=== PATIENT | male | born 1955 | race Caucasian/White ===

== ENCOUNTER 2020-12-22 08:43 | Inpatient (IN) | payer SELFPAY ==
[2020-12-22] VITALS (19 sets, daily range): BP systolic 103–138; BP diastolic 62–103; PULSE 83–154; RESP 16–20; TEMP 36.3–36.8; O2SAT 93–97; BMI 39.9
--- NOTE | 2020-12-22 | ECHO_ITS ---
Patient Info Name: Desmond Piper Age: 65 years : 1955 Gender: Male Ht: 69 in Wt: 270 lbs BSA: 2.50 m2 HR: 107 bpm BP: 113 / 66 mmHg Heart Rhythm: Atrial Fibrillation Technical Quality: Good Exam Date: 12/22/2020 3:43 PM Exam Location: [facility] Pulmonary Exam Room: [facility] [place] Patient Status: Inpatient Admit Date: 12/22/2020 Staff Ordering Physician: Karlos Vines MD Manager Public: Bessy Shaw RDCS Attending Provider: Juanita Culp MD Referring Physician: Jasmyn RASMUSSEN; Exam Type: CA echo doppler color flow Study Info Indications - AFIB Complete two-dimensional, color flow and Doppler transthoracic echocardiogram is performed. Summary 1. Complete two-dimensional, color flow and Doppler transthoracic echocardiogram is performed. 2. Left ventricular chamber dimension is mildly enlarged. 3. Left ventricular systolic function is severely reduced, estimated at 20-25%. 4. There is mildly increased left ventricular wall thickness. 5. The left ventricular diastolic function is indeterminate. 6. Right ventricular chamber dimension is mildly enlarged. 7. Right ventricular systolic function is reduced. 8. Left atrial chamber dimension is moderately enlarged. 9. Right atrial chamber dimension is mildly enlarged. 10. There is mild to moderate mitral valve regurgitation. 11. There is mild tricuspid valve regurgitation. 12. Moderate pulmonary hypertension, estimated pulmonary arterial systolic pressure is 51 mmHg. 13. There is mild pulmonic regurgitation. 14. There is small pericardial effusion. Left Ventricle Left ventricular chamber dimension is mildly enlarged. Left ventricular systolic function is severely reduced, estimated at 20-25%. There is mildly increased left ventricular wall thickness. The left ventricular diastolic function is indeterminate. Right Ventricle Right ventricular chamber dimension is mildly enlarged. Right ventricular systolic function is reduced. Left Atria Left atrial chamber dimension is moderately enlarged. Right Atria Right atrial chamber dimension is mildly enlarged. Atrial Septum Intact interatrial septum visualized by color flow imaging. Aortic Valve The aortic valve is trileaflet. There is mild aortic valve sclerosis. There is no aortic valve stenosis. There is trace aortic valve regurgitation. Pulmonic Valve The pulmonic valve is normal. There is no pulmonic valve stenosis. There is mild pulmonic regurgitation. Mitral Valve The mitral valve has thickened leaflets. There is no mitral valve stenosis. There is mild to moderate mitral valve regurgitation. Tricuspid Valve The tricuspid valve leaflets are normal. There is no significant tricuspid valve stenosis. There is mild tricuspid valve regurgitation. Moderate pulmonary hypertension, estimated pulmonary arterial systolic pressure is 51 mmHg. Pericardium/Pleural The pericardium appears normal. There is small pericardial effusion. Inferior Vena Cava Dilated inferior vena cava with <50% collapse upon inspiration consistent with elevated right atrial pressure, 10 mmHg. Aorta The aortic root size at the sinus of Valsalva is normal. Left Ventricular Outflow Tract Name Value Normal LVOT 2D
--- NOTE | ~2020-12-22 | XR_ITS ---
EXAMINATION: XR chest 1V portable DATE: 12/22/2020 09:45 INDICATION: Shortness of breath. TECHNIQUE: A single frontal view of the chest was obtained. COMPARISON: Chest 2 views 03/04/2011 FINDINGS: There is an interstitial pattern in the lungs, consistent with mild pulmonary edema. No ple ural effusion or pneumothorax. Cardiomegaly is noted. There are changes of anterior fusion procedure in cervical spine. IMPRESSION: 1. Mild pulmonary edema. 2. Cardiomegaly. Reviewed, dictated and finalized at location A. [facility]
--- NOTE | 2020-12-22 08:49 | ECG_ITS ---
Measurements Intervals [place] Rate: 154 P: WI: 0 QRS: 142 QRSD: 87 T: 120 QT: 314 QTc: 504 Interpretive Statements ATRIAL FIBRILLATION WITH RAPID VENTRICULAR RESPONSE RIGHT AXIS DEVIATION LOW VOLTAGE- LIMB LEADS BORDERLINE R WAVE PROGRESSION, ANTERIOR LEADS BORDERLINE T WAVE ABNORMALITY- DIFFUSE LEADS ABNORMAL ECG Electronically Signed On 12-22-2020 10:32:37 [employer]PERATOR by Branden Curry D.O.
[2020-12-22 09:18] LABS: Basophils Absolute Auto 0.1 K/mm3 (0.0-0.1); Basophils Percent Auto 0.7 % (0.2-1.2); Eosinophils Absolute Auto 0.1 K/mm3 (0-0.3); Eosinophils Percent Auto 1.6 % (0-4.4); Hematocrit 48.6 % (42.0-52.0); Hemoglobin 15.8 g/dL (14.0-18.0); Immature Granulocyte Absolute 0.02 K/mm3 (0.00-0.031); Immature Granulocyte Percent A 0.2 % (0-0.5); Lymphocytes Percent Auto 31.4 % (18.3-44.2); Mean Corpuscular HGB Conc 32.5 g/dl (32-36); Mean Corpuscular Hemoglobin 28.7 pg (26-34); Mean Corpuscular Volume 88.4 fl (80-100); Mean Platelet Volume 10.8 fl (7.4-10.4); Monocytes Absolute Auto 0.7 K/mm3 (0.1-0.6); Monocytes Percent Auto 8.2 % (2.6-8.5); Neutrophils Absolute Auto 4.8 K/mm3 (1.3-6.7); Neutrophils Percent Auto 57.9 % (45.5-73.1); Platelet Count Result 290 k/mm3 (150-375); White Blood Count 8.3 K/mm3 (4.5-10.0)
[2020-12-22 09:25] LABS: INR 1.2; Prothrombin Time 15.5 Seconds (11.1-14.7)
[2020-12-22 09:26] LABS: Partial Thromboplastin Time 28.9 SECONDS (22.3-36.8)
--- NOTE | 2020-12-22 09:26 | ED.SOB ---
HPI - SOB/Dyspnea General Chief Complaint: Shortness of Breath/Dyspnea Stated Complaint: shortness of breath, chest pressure Time Seen by Provider: 12/22/20 08:49 Source: patient Mode of arrival: wheelchair Limitations: no limitations History of Present Illness HPI Narrative: This is a 65 year old male with history of paroxysmal atrial fibrillation who presents for evaluation shortness of breath and chest pressure. He has been having shortness of breath for the past 16 days. He has noticed his breathing worsens when he lays down so he has been sleeping in a recliner. He has wheezing when he sleeps at night so he uses his inhaler. He also reports constant chest pressure for 2 weeks. He states he feels like his lungs are full. He was noted to have a 20 pound weight gain by his PCP . He has been taking Lasix at home , and he has noted that it improved his breath. He ran out of Lasix on Saturday. He went to see his primary care physician today and he was referred to ER for treatment. He was found to be in afib with RVR. He states he was diagnosed with afib 7 years ago. He states he was placed on aspirin and metoprolol for his afib. He states he no longer takes either medication because he had not had any issues. He states his podiatrist assistant moved away years ago so he does not follow one currently. Related Data Home Medications Medication Instructions Recorded Confirmed ascorbic acid (vitamin C) 500 mg PO DAILY 12/22/20 12/22/20 cholecalciferol (vitamin D3) 125 mcg PO DAILY 12/22/20 12/22/20 [Dialyvite Vitamin D] cod liver oil 1 cap PO ONCE 12/22/20 12/22/20 magnesium 400 mg PO DAILY 12/22/20 12/22/20 potassium 99 mg PO DAILY 12/22/20 12/22/20 saw palmetto 1,000 mg PO DAILY 12/22/20 12/22/20 Allergies Allergy/AdvReac Type Severity Reaction Status Date / Time amoxicillin Allergy Unknown Unknown Verified 12/22/20 08:59 Penicillins Allergy Unknown Unknown Verified 12/22/20 08:59 Review of Systems Review of Systems: All systems reviewed & are unremarkable except as noted in HPI and below Constitutional: Constitutional: Denies chills and Denies fever(s) Cardiovascular: Cardiovascular: Reports chest pain and Denies radiating jaw, neck or arm pain Respiratory: Respiratory: Denies cough, Reports dyspnea and Reports wheezing Gastrointestinal: Gastrointestinal: Denies abdominal pain, Denies nausea and Denies vomiting [facility] Past Medical History Medical History Asthma Essential hypertension Mild intermittent asthma without complication Mixed hyperlipidemia Paroxysmal atrial fibrillation Tinnitus Surgical History Surgical History H/O cataract extraction Family History Family History Mother Family history of atrial fibrillation Hypertension Cerebrovascular accident Father Family history of atrial fibrillation Chronic obstructive pulmonary disease Hypertension Congestive heart failure Social History Social History Social History: The patient lives with his and mother who was in her 90s. His is the durable power staff attorney for healthcare. He desires to be a full code. 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 He used to smoke cigars until 10/14/1979. He does not use any alcohol, marijuana, or illicit drugs. Smoking status: Never smoker Smoking end date: 10/14/79 Alcohol intake: never Substance use: never Living arrangements: with family Occupation/Education: occupation Gender identity (if verbalized by the patient): Male Spiritual care concerns: No Exam Const: General: alert Nutritional Appearance: obese Orientation/consciousness: patient oriented x3 Eyes: EOM: EOMs intact bilaterally Resp:
[2020-12-22 09:29] LABS: Alanine Aminotransferase 30 U/L (4-50); Albumin Level 4.2 g/dL (3.5-5.1); Alkaline Phosphatase 53 U/L (38-126); Anion Gap 8 mmol/L (8-16); Aspartate Amino Transferase 25 U/L (17-59); Bilirubin,Total 0.8 mg/dL (0.2-1.3); Blood Urea Nitrogen 17 mg/dL (9-20); Calcium 9.2 mg/dL (8.4-10.2); Carbon Dioxide 26 mmol/L (22-30); Chloride 105 mmol/L (98-107); Estimated CRCL calculation 108 ml/min; Estimated Glomerular Filt Rate > 60; Glucose 144 mg/dL (75-110); Potassium 4.4 mmol/L (3.4-5.0); Sodium 139 mmol/L (137-145)
[2020-12-22] MEDS: dilTIAZem HCl INJ 25 MG/5 ML VIAL 20 MG IV PUSH (09:34)
[2020-12-22 09:41] LABS: NT Pro B Type Natriuretic Pept 1940 PG/ML (5-100)
[2020-12-22 09:47] LABS: Alveolar/Arterial O2 Gradient 29.2 mmHg; Base Excess ABG -0.9 mEq/l (+/-2.0); Carboxyhemoglobin 0.8 % THb (0-2.0); Fractional Inspired Oxygen 21 %; HCO3 ABG 22.8 mEq/l (22.0-26.0); Methemoglobin ABG 0.3 %THb (0-1.5); Oxygen Content ABG 20.9 %vol (16.0-22.0); Oxygen Saturation ABG 95.9 % (95.0-100.0); PCO2 ABG 35.4 mmHg (35.0-45.0); PO2 ABG 78.1 mmHg (80.0-100.0); PO2 FiO2 Ratio Arterial Blood 3.72 %; Reduced Hemoglobin 4.9 %THb (0-5.0); Total Hemoglobin 15.8 g/dL (12.0-18.0); pH ABG 7.427 (7.350-7.450)
[2020-12-22 09:48] LABS: Device ROOM AIR; Modified Allen's Test Pass; Site Drawn LEFT RADIAL
[2020-12-22] MEDS: ENOXAPARIN 120 MG/0.8 ML SYRINGE 130 MG SUB-Q (10:15)
[2020-12-22] MEDS: FUROSEMIDE INJ 100 MG/10 ML VIAL 80 MG IV PUSH (10:15)
--- NOTE | 2020-12-22 11:45 | PC.NURSE ---
This patient, Desmond Piper, was admitted to IMU Room 207-01. Patient/family oriented to hospital policies and general routines including ID bracelet, bed and alarms, visiting hours, pain management, procedures, bathroom and other care routines, personal items, smoking policy, room service/diet, and visiting hours. Information on how to activate the Rapid Response Team has been discussed. Patient/Family are encouraged to report perceived risks to care and to ask questions if they do not understand what they are told or what they should do.
--- NOTE | 2020-12-22 13:28 | PM.IMHP ---
H&P: HPI History of Present Illness Date/Time: 12/22/20 13:28 all 4 days who has a history of paroxysmal atrial fibrillation. The patient stated he had been taking a full dose of aspirin but felt that it was med changes blood pressure high so he does not always take the aspirin. The patient has not taken metoprolol and many months. He states that he only takes it when he feels like he is in the atrial fibrillation. He takes a lot of supplements. The patient stated that he is very short of breath when he lays down for the last 16 days. The patient does have a history of asthma and felt like he was wheezing and needed his inhaler. Patient stated that he has been using his albuterol inhaler the last couple of weeks every couple days. The patient stated that he had been on Lasix at 1 point and ran out and did not follow-up with a aegis operations specialist. He did have a aegis operations specialist but that 1 was no longer practice and did not follow-up with a new aegis operations specialist. The patient stated he was taking his [id number]'s Lasix and ran out of that on Saturday. He stated that the Lasix did help him and that he is breathing better. The patient had been sleeping in a recliner. His last echo was approximately 7 years ago. The patient stated that his cholesterol is borderline is status his blood sugars. Blood glucose is 144 today. BNP was 1940. RVR in the emergency room and cardiology from [facility] has been consulted. Patient was started on a Cardizem drip. He was given IV Lasix. He was also started on subcu Lovenox. The patient stated that he is already starting to feel better. The patient is being admitted into observation status. Date of service is 12/22/20. Chief Complaint: Shortness of breath Review of Systems Review of Systems: All systems reviewed & are unremarkable except as noted in HPI and below Constitutional: Constitutional: Reports as per HPI and Reports no additional constitutional complaints Eyes: Eyes: Reports as per HPI and Reports no additional eye complaints ENT: Reports system reviewed and no additional complaints, except as documented and Reports Normal hearing present Cardiovascular: Cardiovascular: Reports no additional cardiovascular complaints Respiratory: Respiratory: Reports no additional respiratory complaints and Reports no additional respiratory complaints Gastrointestinal: Gastrointestinal: Reports as per HPI and Reports no additional gastrointestinal complaints Musculoskeletal: Musculoskeletal: Reports no additional musculoskeletal complaints Integumentary/Breasts: Skin/Breast: Reports system reviewed and no additional complaints, except as docu and Reports as per HPI Neurologic: Reports system reviewed and no additional complaints, except as documented, Reports as per HPI and Reports Normal hearing present Psychiatric: Psychiatric: Reports no additional psychiatric complaints and Reports as per HPI Endocrine: Endocrine: Reports no additional endocrine complaints Hematologic/Lymphatic: Hematologic/Lymphatic: Reports no additional hematologic/lymphatic complaints Allergic/Immunologic: Allergic/Immunologic: Reports no additional allergic/immunologic complaints [facility] Past Medical History Medical History (Updated 12/22/20 @ 13:51 by Jenni Castanon NP) Asthma Essential hypertension Mild intermittent asthma without complication Mixed hyperlipidemia Paroxysmal atrial fibrillation Tinnitus Surgical History Surgical History (Updated 12/22/20 @ 13:43 by Jenni Castanon NP) H/O cataract extraction Family History Family History (Updated 12/22/20 @ 12:13 by Shaila Rosales RN) Mother Family history of atrial fibrillation Hypertension Cerebrovascular accident Father Family history of atrial fibrillation Chronic obstructive pulmonary disease Hypertension Congestive heart failure Social History Social History (Updated 12/22/20 @ 13:45 by Jenni Castanon NP) Social History: The patient live
--- NOTE | 2020-12-22 14:02 | PCNSR ---
On 12/22/20, the student, Marlen Brenner, provided care and completed [facility] documentation on this patient. I have reviewed the student's documentation and agree with the findings.
--- NOTE | 2020-12-22 15:11 | PM.CNCAR ---
Assessment and Plan Assessment and plan (1) Paroxysmal atrial fibrillation: Code(s): I48.0 - Paroxysmal atrial fibrillation Status: Acute Assessment and Plan: He has a chads Vasc score of at least 2 and could be as high as 5. Reportedly he did have a history of TIA. He likely has diabetes also as well as a history of high blood pressure and with his volume overload/CHF presentation; his chads Vasc score would be 5. Regardless anticoagulation is warranted. He wishes to start a once daily medication and therefore will initiate Xarelto at 20 mg daily. Continue diltiazem drip for rate control for now. Will also add some metoprolol 25 mg p.o. b.i.d. and titrate his diltiazem down as able. 2D echocardiogram Doppler will be ordered and reviewed. Magnesium level will also be ordered. He likely has untreated sleep apnea and an apnea link will be ordered. Eventual outpatient stress test. (2) Elevated blood sugar: Code(s): R73.9 - Hyperglycemia, unspecified Status: Acute Assessment and Plan: A1c pending (3) Essential hypertension: Code(s): I10 - Essential (primary) hypertension Status: Acute Assessment and Plan: Will start metoprolol 25 mg p.o. b.i.d.. (4) Mixed hyperlipidemia: Code(s): E78.2 - Mixed hyperlipidemia Status: Acute (5) Volume overload: Code(s): E87.70 - Fluid overload, unspecified Status: Acute Assessment and Plan: Volume overload related to AFib with RVR. Continue IV Lasix 40 mg IV q.12 hours. Repeat basic metabolic panel morning. History of Present Illness History of Present Illness Consult date/time: 12/22/20 15:11 Requesting physician: Devika Delgadillo MD Consult reason: atrial fibrillation Reason For Visit: atrial fibrillation with rvr Narrative: Date of service 12/22/2020 History: Patient is a very pleasant 65-year-old male who has a history of atrial fibrillation. He does not routinely take aspirin any longer but formally was taking aspirin and metoprolol. He is only taking metoprolol generally whenever he feels like he is in atrial fibrillation. He came to the hospital low because of worsening shortness of breath. Shortness breath has been present for the past 2-3 weeks. He has also noticed lower extremity swelling also for the same timeframe. He has had a constant chest tightness that would be worsened with activity. His shortness of breath was getting to the point that he was dyspneic even at rest. He states that he feels like he cannot completely X help. He did not feel palpitations though. He also describes paroxysmal nocturnal dyspnea and orthopnea. No syncope or presyncope. He has put on 20-30 lb over the past several weeks also. Because of all the above symptoms he came to the hospital and was found to be in atrial fibrillation with rapid ventricular response and heart failure. He was given IV diuretics started on diltiazem drip and is currently feeling much better than he previously was. Review of Systems Review of Systems: All systems reviewed & are unremarkable except as noted in HPI and below Constitutional: Constitutional: Denies weakness Eyes: Eyes: Denies blurry vision ENT: Reports Normal hearing present Comments: History of tinnitus Cardiovascular: Cardiovascular: Reports chest pain Respiratory: Respiratory: Reports dyspnea and Reports dyspnea on exertion Gastrointestinal: Gastrointestinal: Reports bloating Genitourinary: Genitourinary: Denies dysuria Musculoskeletal: Musculoskeletal: Denies neck pain Integumentary/Breasts: Skin/Breast: Denies dry skin and Denies unusual bruising Neurologic: Denies headache(s) Psychiatric: Psychiatric: Denies anxiety and Denies confusion Endocrine: Endocrine: Denies excessive sweating and Denies fatigue Hematologic/Lymphatic: Hematologic/Lymphatic: Denies easy bleeding and Denies easy bruising Allergic/Immunologic: Allergic/Immunologic: Denies G
[2020-12-22] MEDS: METOPROLOL TARTRATE 25 MG TABLET PO ×2 (17:00→20:37)
[2020-12-22] MEDS: RIVAROXABAN 20 MG TABLET PO (17:00)
[2020-12-22 17:08] LABS: Glucose Point of Care 119 (65-105)
[2020-12-22] MEDS: FUROSEMIDE INJ 40 MG/4 ML VIAL IV PUSH (19:36)
[2020-12-22 20:10] LABS: Glucose Point of Care 128 (65-105)
[2020-12-23] VITALS (18 sets, daily range): BP systolic 97–126; BP diastolic 56–89; PULSE 72–126; RESP 18–24; TEMP 36.1–36.6; O2SAT 95–98
[2020-12-23] MEDS: ALBUTEROL SULFATE NEB 2.5 MG/0.5 ML INH INHALATION (03:54)
[2020-12-23 04:56] LABS: Basophils Absolute Auto 0.1 K/mm3 (0.0-0.1); Basophils Percent Auto 0.6 % (0.2-1.2); Eosinophils Absolute Auto 0.1 K/mm3 (0-0.3); Eosinophils Percent Auto 1.2 % (0-4.4); Hematocrit 44.3 % (42.0-52.0); Hemoglobin 14.3 g/dL (14.0-18.0); Immature Granulocyte Absolute 0.02 K/mm3 (0.00-0.031); Immature Granulocyte Percent A 0.2 % (0-0.5); Lymphocytes Absolute Auto 3.02 K/mm3 (0.9-3.2); Lymphocytes Percent Auto 33.8 % (18.3-44.2); Mean Corpuscular HGB Conc 32.3 g/dl (32-36); Mean Corpuscular Hemoglobin 28.3 pg (26-34); Mean Corpuscular Volume 87.7 fl (80-100); Mean Platelet Volume 11.1 fl (7.4-10.4); Monocytes Absolute Auto 0.8 K/mm3 (0.1-0.6); Monocytes Percent Auto 8.6 % (2.6-8.5); Neutrophils Percent Auto 55.6 % (45.5-73.1); Platelet Count Result 263 k/mm3 (150-375); Red Blood Count 5.05 M/mm3 (4.6-6.20); White Blood Count 8.9 K/mm3 (4.5-10.0)
[2020-12-23 05:07] LABS: Hemoglobin A1C 6.1 % (<5.7)
[2020-12-23 05:08] LABS: Anion Gap 6 mmol/L (8-16); Blood Urea Nitrogen 19 mg/dL (9-20); Calcium 8.7 mg/dL (8.4-10.2); Carbon Dioxide 27 mmol/L (22-30); Chloride 105 mmol/L (98-107); Estimated CRCL calculation 107 ml/min; Estimated Glomerular Filt Rate > 60; Glucose 111 mg/dL (75-110); Magnesium 2.1 mg/dL (1.6-2.3); Potassium 4.2 mmol/L (3.4-5.0); Sodium 138 mmol/L (137-145)
[2020-12-23 07:00] LABS: Free T4 Free Thyroxine Reflex 1.12 ng/dL (0.78-2.19)
[2020-12-23 07:48] LABS: Total Triiodothyronine (T3) 0.97 NG/ML (0.97-1.69)
[2020-12-23 07:48] LABS: Glucose Point of Care 114 (65-105)
[2020-12-23] MEDS: METOPROLOL TARTRATE 25 MG TABLET PO ×2 (09:13→20:54)
[2020-12-23] MEDS: FUROSEMIDE INJ 40 MG/4 ML VIAL IV PUSH ×3 (09:13→20:54)
--- NOTE | 2020-12-23 10:47 | PM.PNCARD ---
Progress Note: A&P Assessment and Plan (1) Paroxysmal atrial fibrillation: Code(s): I48.0 - Paroxysmal atrial fibrillation Status: Acute Assessment and Plan: He has a chads Vasc score of at least 2 and could be as high as 5. Reportedly he did have a history of TIA. He likely has diabetes also as well as a history of high blood pressure and with his volume overload/CHF presentation; his chads Vasc score would be 5. Regardless anticoagulation is warranted. He wishes to start a once daily medication and therefore will initiate Xarelto at 20 mg daily. Will DC diltiazem. Continue metoprolol. He likely has untreated sleep apnea but apnea link was indeterminate last night as the patient did not sleep well. Eventual outpatient stress test versus coronary angiogram. Plan will be for outpatient elective cardioversion without ARLETH as long as there is uninterrupted anticoagulation (2) Elevated blood sugar: Code(s): R73.9 - Hyperglycemia, unspecified Status: Acute Assessment and Plan: A1c 6.1% (3) Essential hypertension: Code(s): I10 - Essential (primary) hypertension Status: Acute Assessment and Plan: Controlled (4) Mixed hyperlipidemia: Code(s): E78.2 - Mixed hyperlipidemia Status: Acute (5) Volume overload: Code(s): E87.70 - Fluid overload, unspecified Status: Acute Assessment and Plan: Volume overload related to AFib with RVR. Continue IV Lasix 40 mg IV q.12 hours. Repeat basic metabolic panel morning. (6) Congestive heart failure: Code(s): I50.9 - Heart failure, unspecified Status: Acute Assessment and Plan: Acute systolic congestive heart failure. Will continue metoprolol, IV furosemide. Will give an extra dose of Lasix 40 mg IV x1 now. Add losartan 12.5 mg p.o. daily and up titrate as able. Consider adding spironolactone if blood pressure will allow. (7) Cardiomyopathy: Code(s): I42.9 - Cardiomyopathy, unspecified Status: Acute Assessment and Plan: Probably related to atrial fibrillation with rapid ventricular response Subjective Date/time seen: 12/23/20 10:47 Interval history: 65-year-old with atrial fibrillation and heart failure admitted for shortness of breath Date of service 12/23/2020: He feels a bit more short of breath this morning. Heart rate is better controlled. No chest pain. Swelling is still present but better Review of Systems Review of Systems: All systems reviewed & are unremarkable except as noted in HPI and below Constitutional: Constitutional: Denies excessive sweating, Denies fatigue, Denies headache(s) and Denies weakness Eyes: Eyes: Denies blurry vision ENT: Reports Normal hearing present, Denies headache(s), Denies lip swelling and Denies neck pain Cardiovascular: Cardiovascular: Reports chest pain, Reports dyspnea and Reports dyspnea on exertion Respiratory: Respiratory: Reports dyspnea and Reports dyspnea on exertion Gastrointestinal: Gastrointestinal: Reports bloating Genitourinary: Genitourinary: Denies dysuria Musculoskeletal: Musculoskeletal: Denies neck pain Integumentary/Breasts: Skin/Breast: Denies dry skin and Denies unusual bruising Neurologic: Reports Normal hearing present, Denies confusion, Denies headache(s) and Denies weakness Psychiatric: Psychiatric: Denies anxiety and Denies confusion Endocrine: Endocrine: Denies excessive sweating and Denies fatigue Hematologic/Lymphatic: Hematologic/Lymphatic: Denies easy bleeding and Denies easy bruising Allergic/Immunologic: Allergic/Immunologic: Denies GI upset with certain foods and Denies lip swelling Exam Narrative: Exam Narrative: Patient is awake alert oriented pleasant and appropriate and appears stated age Const: General: comfortable and no acute distress; No confusion Orientation/consciousness: No confusion HENMT: General nose exam: Normal nares present Eyes: Sclera: sclerae
[2020-12-23 12:19] LABS: Glucose Point of Care 138 (65-105)
--- NOTE | 2020-12-23 12:37 | PM.IMPN ---
Progress Note: A&P Assessment and Plan (1) Paroxysmal atrial fibrillation: Code(s): I48.0 - Paroxysmal atrial fibrillation Status: Acute Assessment and Plan: [id number] score is 2, possibly as high as 5 with possible history of TIA and DM. Telemetry reviewed showing atrial fibrillation. Rate is controlled at this time. Echocardiogram reviewed. -anticoagulation with Xarelto will be initiated. -diltiazem drip has been discontinued -continue metoprolol -cardiology following and input is appreciated. Planning for outpatient elective cardioversion. Probable stress test vs coronary angiogram as outpatient. -patient will need formal sleep study. Apnea link highly suspicious for pathologic breathing disorder on 12/22/2020. (2) Systolic CHF: Code(s): I50.20 - Unspecified systolic (congestive) heart failure Status: Acute Assessment and Plan: Acute systolic CHF. Echocardiogram reviewed which showed severely reduced EF of 20-25%. BNP 1940. -cardiology following input appreciated -continue metoprolol -IV Lasix 40 mg b.i.d. -spironolactone being considered per Cardiology as BP allows -low-dose losartan has been initiated. Monitor and uptitrate as BP allows -weight patient daily. Monitor intake/output. Heart healthy diet. (3) Volume overload: Code(s): E87.70 - Fluid overload, unspecified Status: Acute Assessment and Plan: Secondary to AFib with RVR. -continue diuresis with Lasix 40 mg IV b.i.d. -monitor volume status closely (4) High risk for diabetes mellitus: Code(s): Z91.89 - Other specified personal risk factors, not elsewhere classified Status: Acute Assessment and Plan: A1c is 6.1. Fasting and random blood sugars have been elevated in the 110s-130s. -initiate Accu-Cheks, sliding scale insulin, and hypoglycemic protocol -trend glucose patterns -he will need to be discharged on some oral hypoglycemic. Will plan to initiate a low-dose metformin prior to discharge. -education will need to be provided for monitoring glucose. (5) Mild intermittent asthma without complication: Code(s): J45.20 - Mild intermittent asthma, uncomplicated Status: Acute Assessment and Plan: Not in acute exacerbation. No acute issues at this time. Maintaining adequate O2 saturations on room air. -levalbuterol available as needed (6) Subclinical hypothyroidism: Code(s): E03.9 - Hypothyroidism, unspecified Status: Acute Assessment and Plan: TSH is only minimally elevated. Free T4 and T3 within normal limits. -recommend repeat TSH in 4-6 weeks upon improvement of acute illness (7) Mixed hyperlipidemia: Code(s): E78.2 - Mixed hyperlipidemia Status: Acute Assessment and Plan: He is on fish oil supplements. -evaluate lipid panel -statin will likely need to be initiated Subjective Date/time seen: 12/23/20 12:37 Interval history: Date of service: 12/23/2020 Desmond Piper this is a 65-year-old male with history of hypertension, mild intermittent asthma, hyperlipidemia, and paroxysmal atrial fibrillation who is seen in follow-up for paroxysmal atrial fibrillation and volume overload. He reports he is feeling a lot better today. He notes that his lower extremity edema has improved. He is still having slight dyspnea on exertion but states this is markedly improved as well. He denies chest pain or palpitations. Denies nausea, vomiting, fever, chills, dizziness, lightheadedness. No cough, orthopnea, PND, or wheezing. Appetite has been good. He has been urinating frequently after his 2nd dose of Lasix. He has no additional concerns at this time. Review of Systems Review of Systems: All systems reviewed & are unremarkable except as noted in HPI and below Exam Narrative: Exam Narrative: Mr. Piper is a well-nourished, well-appearing 65-year-old male who is lying semi-recumbent i
[2020-12-23] MEDS: RIVAROXABAN 20 MG TABLET PO (17:06)
[2020-12-23 18:12] LABS: Glucose Point of Care 113 (65-105)
[2020-12-23 20:44] LABS: Glucose Point of Care 113 (65-105)
[2020-12-24] VITALS (21 sets, daily range): BP systolic 112–188; BP diastolic 49–109; PULSE 87–130; RESP 16–20; TEMP 36.1–36.8; O2SAT 94–99
[2020-12-24] MEDS: METOPROLOL TARTRATE 25 MG TABLET PO ×2 (00:39→06:02)
[2020-12-24 05:16] LABS: Hematocrit 46.2 % (42.0-52.0); Mean Corpuscular HGB Conc 32.5 g/dl (32-36); Mean Corpuscular Hemoglobin 28.5 pg (26-34); Mean Corpuscular Volume 87.7 fl (80-100); Platelet Count Result 260 k/mm3 (150-375); Red Blood Count 5.27 M/mm3 (4.6-6.20); Red Cell Distribution Width 13.7 % (11.5-14.5); White Blood Count 7.3 K/mm3 (4.5-10.0)
[2020-12-24 05:29] LABS: Anion Gap 4 mmol/L (8-16); Blood Urea Nitrogen 16 mg/dL (9-20); Carbon Dioxide 32 mmol/L (22-30); Chloride 104 mmol/L (98-107); Cholesterol 150 mg/dL (0-200); Estimated CRCL calculation 106 ml/min; Estimated Glomerular Filt Rate > 60; Glucose 106 mg/dL (75-110); HDL Direct 28 mg/dL; Magnesium 2.2 mg/dL (1.6-2.3); Potassium 4.1 mmol/L (3.4-5.0); Sodium 140 mmol/L (137-145); Triglycerides 135 mg/dL (<150)
[2020-12-24 05:39] LABS: LDL Cholesterol Direct 94 mg/dL
[2020-12-24 07:50] LABS: Glucose Point of Care 120 (65-105)
[2020-12-24] MEDS: LOSARTAN POTASSIUM 12.5 MG TABLET PO (08:03)
[2020-12-24] MEDS: FUROSEMIDE INJ 40 MG/4 ML VIAL IV PUSH ×2 (08:04→20:32)
--- NOTE | 2020-12-24 10:03 | PM.IMPN ---
Progress Note: A&P Assessment and Plan (1) Paroxysmal atrial fibrillation: Code(s): I48.0 - Paroxysmal atrial fibrillation Status: Acute Assessment and Plan: [id number] score is 2, possibly as high as 5 with possible history of TIA and DM. Telemetry reviewed showing atrial fibrillation. Rate is controlled at this time. Echocardiogram reviewed. -anticoagulation with Xarelto will be initiated. -diltiazem drip has been discontinued -continue metoprolol -cardiology following and input is appreciated. Planning for outpatient elective cardioversion. Probable stress test vs coronary angiogram as outpatient. -patient will need formal sleep study. Apnea link highly suspicious for pathologic breathing disorder on 12/22/2020. Will continue current treatment. (2) Systolic CHF: Code(s): I50.20 - Unspecified systolic (congestive) heart failure Status: Acute Assessment and Plan: Acute systolic CHF. Echocardiogram reviewed which showed severely reduced EF of 20-25%. BNP 1940. -cardiology following input appreciated -continue metoprolol -IV Lasix 40 mg b.i.d. -spironolactone being considered per Cardiology as BP allows -low-dose losartan has been initiated. Monitor and uptitrate as BP allows -weight patient daily. Monitor intake/output. Heart healthy diet. Is stays okay possible discharge tomorrow morning. (3) Volume overload: Code(s): E87.70 - Fluid overload, unspecified Status: Acute Assessment and Plan: Secondary to AFib with RVR. -continue diuresis with Lasix 40 mg IV b.i.d. -monitor volume status closely (4) High risk for diabetes mellitus: Code(s): Z91.89 - Other specified personal risk factors, not elsewhere classified Status: Acute Assessment and Plan: A1c is 6.1. Fasting and random blood sugars have been elevated in the 110s-130s. -initiate Accu-Cheks, sliding scale insulin, and hypoglycemic protocol -trend glucose patterns -he will need to be discharged on some oral hypoglycemic. Will plan to initiate a low-dose metformin prior to discharge. -education will need to be provided for monitoring glucose. (5) Mild intermittent asthma without complication: Code(s): J45.20 - Mild intermittent asthma, uncomplicated Status: Acute Assessment and Plan: Not in acute exacerbation. No acute issues at this time. Maintaining adequate O2 saturations on room air. -levalbuterol available as needed (6) Subclinical hypothyroidism: Code(s): E03.9 - Hypothyroidism, unspecified Status: Acute Assessment and Plan: TSH is only minimally elevated. Free T4 and T3 within normal limits. -recommend repeat TSH in 4-6 weeks upon improvement of acute illness (7) Mixed hyperlipidemia: Code(s): E78.2 - Mixed hyperlipidemia Status: Acute Assessment and Plan: He is on fish oil supplements. -evaluate lipid panel -statin will likely need to be initiated Subjective Date/time seen: 12/24/20 10:03 Interval history: Date of service: 12/23/2020 Desmond Piper this is a 65-year-old male with history of hypertension, mild intermittent asthma, hyperlipidemia, and paroxysmal atrial fibrillation who is seen in follow-up for paroxysmal atrial fibrillation and volume overload. Patient is feeling slightly better today. Decreased shortness of breath. No chest pain. No abdominal pain, nausea or vomiting. Mood stable. Review of Systems Review of Systems: All systems reviewed & are unremarkable except as noted in HPI and below Constitutional: Constitutional: Reports as per HPI and Reports no additional constitutional complaints Eyes: Eyes: Reports as per HPI and Reports no additional eye complaints ENT: Reports system reviewed and no additional complaints, except as documented and Reports Normal hearing present Cardiovascular: Cardiovascular: Reports no additional cardiovascular complai
[2020-12-24 11:45] LABS: Glucose Point of Care 105 (65-105)
[2020-12-24] MEDS: DIGOXIN INJ 250 MCG/ML 2 ML AMP (*BKC) 500 MCG IV PUSH (13:45)
[2020-12-24] MEDS: METOPROLOL TARTRATE 50 MG TAB PO ×2 (14:35→21:59)
--- NOTE | 2020-12-24 16:35 | PM.PNCARD ---
Progress Note: A&P Assessment and Plan (1) Paroxysmal atrial fibrillation: Code(s): I48.0 - Paroxysmal atrial fibrillation Status: Acute Assessment and Plan: He has a chads Vasc score of at least 2 and could be as high as 5. Reportedly he did have a history of TIA. He likely has diabetes also as well as a history of high blood pressure and with his volume overload/CHF presentation; his chads Vasc score would be 5. Continue Xarelto. Increased metoprolol to 50 mg p.o. q.8 hours. IV digoxin 0.5 mg x 1 administered, start 0.25 mg p.o. daily tomorrow unless heart rate generally much better controlled on metoprolol. If heart rate remains poorly controlled and for ARLETH cardioversion on Saturday to restore sinus rhythm. May need to seriously consider amiodarone if unable to establish sinus rhythm and or maintain for LV function to improve. Severe LV dysfunction likely tachycardia induced cardiomyopathy although cannot entirely exclude underlying CAD. Eventual outpatient stress test versus coronary angiogram. (2) Congestive heart failure: Code(s): I50.9 - Heart failure, unspecified Status: Acute Assessment and Plan: Acute decompensated systolic congestive heart failure with severe LV systolic dysfunction EF 20-25%. Improved, but patient remains volume overloaded. Volume overload related to AFib with RVR. Continue IV Lasix 40 mg IV q.12 hours. Repeat basic metabolic panel morning. Continue Losartan 12.5 mg p.o. daily and up titrate as able. Consider adding spironolactone if blood pressure will allow, stable thus far. Add in AM if BP tolerates. (3) Cardiomyopathy: Code(s): I42.9 - Cardiomyopathy, unspecified Status: Acute Assessment and Plan: Probably related to atrial fibrillation with rapid ventricular response (4) Essential hypertension: Code(s): I10 - Essential (primary) hypertension Status: Acute Assessment and Plan: Controlled (5) Mixed hyperlipidemia: Code(s): E78.2 - Mixed hyperlipidemia Status: Acute (6) Elevated blood sugar: Code(s): R73.9 - Hyperglycemia, unspecified Status: Deleted Assessment and Plan: A1c 6.1% Time Spent With Patient Time with patient: 25 - 35 minutes Subjective Date/time seen: Date of service: 12/24/20 16:35 Interval history: 65-year-old with atrial fibrillation with RVR and heart failure admitted for shortness of breath He feels much better today. Breathing is less labored, abdomen less tight, edema improving but not resolved. Less palpitations in general, however, heart rate remains rapid 110-130's at rest up to 140s with activity. No chest pain. Denies dizziness. IV digoxin administered and metoprolol increased to 25 mg p.o. q.8 hours last night. Review of Systems Review of Systems: All systems reviewed & are unremarkable except as noted in HPI and below Constitutional: Constitutional: Denies excessive sweating, Denies fatigue, Denies headache(s) and Denies weakness Eyes: Eyes: Denies blurry vision ENT: Reports Normal hearing present, Denies headache(s), Denies lip swelling and Denies neck pain Cardiovascular: Cardiovascular: Reports chest pain, Reports dyspnea and Reports dyspnea on exertion Respiratory: Respiratory: Reports dyspnea and Reports dyspnea on exertion Gastrointestinal: Gastrointestinal: Reports bloating Genitourinary: Genitourinary: Denies dysuria Musculoskeletal: Musculoskeletal: Denies neck pain Integumentary/Breasts: Skin/Breast: Denies dry skin and Denies unusual bruising Neurologic: Reports Normal hearing present, Denies confusion, Denies headache(s) and Denies weakness Psychiatric: Psychiatric: Denies anxiety and Denies confusion Endocrine: Endocrine: Denies excessive sweating and Denies fatigue Hematologic/Lymphatic: Hematologic/Lymphatic: Denies easy bleeding and Denies easy bruising Allergic/Immunologic: Allergic/Immunologic: Denies GI upset w
[2020-12-24 16:41] LABS: Glucose Point of Care 94 (65-105)
[2020-12-24] MEDS: RIVAROXABAN 20 MG TABLET PO (17:37)
[2020-12-24 20:11] LABS: Glucose Point of Care 96 (65-105)
[2020-12-25] VITALS (19 sets, daily range): BP systolic 103–124; BP diastolic 46–86; PULSE 83–147; RESP 16–20; TEMP 35.9–36.9; O2SAT 93–100
--- NOTE | 2020-12-25 03:03 | PC.NURSE ---
Daylight Savings Time For Daylight Savings Time Ending in the Fall - Clocks are moved back. For Daylight Savings Time Beginning in the Spring - Clocks are moved ahead. For [facility], the time of change occurs at 0200 hrs. Time is taken from the counter server. This entry on the patient's chart recognizes the change in time reflected during documentation. Example: 2 entries for vital signs may be charted for 0200 hrs.
[2020-12-25] MEDS: METOPROLOL TARTRATE 50 MG TAB PO ×2 (05:46→13:19)
[2020-12-25 07:12] LABS: Glucose Point of Care 105 (65-105)
[2020-12-25] MEDS: DIGOXIN 250 MCG TABLET PO (08:22)
[2020-12-25] MEDS: LOSARTAN POTASSIUM 12.5 MG TABLET PO (08:22)
[2020-12-25] MEDS: FUROSEMIDE INJ 40 MG/4 ML VIAL IV PUSH ×2 (08:23→20:45)
--- NOTE | 2020-12-25 10:39 | PM.IMPN ---
Progress Note: A&P Assessment and Plan (1) Paroxysmal atrial fibrillation: Code(s): I48.0 - Paroxysmal atrial fibrillation Status: Acute Assessment and Plan: [id number] score is 2, possibly as high as 5 with possible history of TIA and DM. Telemetry reviewed showing atrial fibrillation. Rate is controlled at this time. Echocardiogram reviewed. -anticoagulation with Xarelto will be initiated. -diltiazem drip has been discontinued -continue metoprolol -cardiology following and input is appreciated. Planning for outpatient elective cardioversion. Probable stress test vs coronary angiogram as outpatient. -patient will need formal sleep study. Apnea link highly suspicious for pathologic breathing disorder on 12/22/2020. Will continue current treatment. (2) Systolic CHF: Code(s): I50.20 - Unspecified systolic (congestive) heart failure Status: Acute Assessment and Plan: Acute systolic CHF. Echocardiogram reviewed which showed severely reduced EF of 20-25%. BNP 1940. -cardiology following input appreciated -continue metoprolol -IV Lasix 40 mg b.i.d. -spironolactone being considered per Cardiology as BP allows -low-dose losartan has been initiated. Monitor and uptitrate as BP allows -weight patient daily. Monitor intake/output. Heart healthy diet. Is stays okay possible discharge tomorrow morning. (3) Volume overload: Code(s): E87.70 - Fluid overload, unspecified Status: Acute Assessment and Plan: Secondary to AFib with RVR. -continue diuresis with Lasix 40 mg IV b.i.d. -monitor volume status closely (4) High risk for diabetes mellitus: Code(s): Z91.89 - Other specified personal risk factors, not elsewhere classified Status: Acute Assessment and Plan: A1c is 6.1. Fasting and random blood sugars have been elevated in the 110s-130s. -initiate Accu-Cheks, sliding scale insulin, and hypoglycemic protocol -trend glucose patterns -he will need to be discharged on some oral hypoglycemic. Will plan to initiate a low-dose metformin prior to discharge. -education will need to be provided for monitoring glucose. (5) Mild intermittent asthma without complication: Code(s): J45.20 - Mild intermittent asthma, uncomplicated Status: Acute Assessment and Plan: Not in acute exacerbation. No acute issues at this time. Maintaining adequate O2 saturations on room air. -levalbuterol available as needed (6) Subclinical hypothyroidism: Code(s): E03.9 - Hypothyroidism, unspecified Status: Acute Assessment and Plan: TSH is only minimally elevated. Free T4 and T3 within normal limits. -recommend repeat TSH in 4-6 weeks upon improvement of acute illness (7) Mixed hyperlipidemia: Code(s): E78.2 - Mixed hyperlipidemia Status: Acute Assessment and Plan: He is on fish oil supplements. -evaluate lipid panel -statin will likely need to be initiated Additional Plan Cardiology consult noted. Will continue current plan of care and treatment. Patient is scheduled for cardioversion in the morning. Subjective Date/time seen: 12/25/20 10:39 Interval history: Date of service: 12/23/2020 Desmond Piper this is a 65-year-old male with history of hypertension, mild intermittent asthma, hyperlipidemia, and paroxysmal atrial fibrillation who is seen in follow-up for paroxysmal atrial fibrillation and volume overload. Patient is feeling slightly better today. Decreased shortness of breath. No chest pain. No abdominal pain, nausea or vomiting. Mood stable. No new complaints Review of Systems Review of Systems: All systems reviewed & are unremarkable except as noted in HPI and below Constitutional: Constitutional: Reports as per HPI and Reports no additional constitutional complaints Eyes: Eyes: Reports as per HPI and Reports no additional eye complaints ENT: Reports system re
[2020-12-25 11:46] LABS: Glucose Point of Care 104 (65-105)
--- NOTE | 2020-12-25 13:04 | PM.PNCARD ---
Progress Note: A&P Assessment and Plan (1) Paroxysmal atrial fibrillation: Code(s): I48.0 - Paroxysmal atrial fibrillation Status: Acute Assessment and Plan: He has a chads Vasc score of at least 2 and could be as high as 5. Reportedly he did have a history of TIA. He likely has diabetes also as well as a history of high blood pressure and with his volume overload/CHF presentation; his chads Vasc score would be 5. Continue Xarelto. - change metoprolol to 100 mg twice daily. Will discontinue digoxin as of tomorrow morning as this has not appreciably improved heart rate control. Furthermore, I anticipate he very well may require amiodarone to assist in cardioversion and/or maintenance of sinus rhythm post cardioversion. - Given inadequate heart rate control ARLETH guided cardioversion is advised. NPO after midnight. Will plan for cardioversion tomorrow. Patient verbalized understanding and is in agreement. Risks, benefits, alternatives discussed. He understands the need for this recommendation and agrees. Severe LV dysfunction likely tachycardia induced cardiomyopathy although cannot entirely exclude underlying CAD. Eventual outpatient stress test versus coronary angiogram. (2) Congestive heart failure: Code(s): I50.9 - Heart failure, unspecified Status: Acute Assessment and Plan: Acute decompensated systolic congestive heart failure with severe LV systolic dysfunction EF 20-25%. Improved, but patient remains volume overloaded. Volume overload related to AFib with RVR. Continue IV Lasix 40 mg IV q.12 hours. Repeat basic metabolic panel morning. Continue Losartan 12.5 mg p.o. daily and up titrate as able. Consider adding spironolactone if blood pressure will allow, stable thus far. Add spironolactone post cardioversion as tolerated. Anticipate transition to oral Lasix tomorrow. (3) Cardiomyopathy: Code(s): I42.9 - Cardiomyopathy, unspecified Status: Acute Assessment and Plan: Probably related to atrial fibrillation with rapid ventricular response (4) Essential hypertension: Code(s): I10 - Essential (primary) hypertension Status: Acute Assessment and Plan: Controlled (5) Mixed hyperlipidemia: Code(s): E78.2 - Mixed hyperlipidemia Status: Acute (6) Elevated blood sugar: Code(s): R73.9 - Hyperglycemia, unspecified Status: Deleted Assessment and Plan: A1c 6.1% Subjective Date/time seen: Date of service: 12/25/20 13:04 Interval history: 65-year-old with atrial fibrillation with RVR and heart failure admitted for shortness of breath Feels well. Denies significant shortness of breath with exception of bathing, denies orthopnea, chest pain or palpitations. Good urine output in response to diuresis. Heart rate remains rapid Paz the 110's to 120s up to 140s with activity. Review of Systems Review of Systems: All systems reviewed & are unremarkable except as noted in HPI and below Constitutional: Constitutional: Denies excessive sweating, Denies fatigue, Denies headache(s) and Denies weakness Eyes: Eyes: Denies blurry vision ENT: Reports Normal hearing present, Denies headache(s), Denies lip swelling and Denies neck pain Cardiovascular: Cardiovascular: Reports chest pain, Reports dyspnea and Reports dyspnea on exertion Respiratory: Respiratory: Reports dyspnea and Reports dyspnea on exertion Gastrointestinal: Gastrointestinal: Reports bloating Genitourinary: Genitourinary: Denies dysuria Musculoskeletal: Musculoskeletal: Denies neck pain Integumentary/Breasts: Skin/Breast: Denies dry skin and Denies unusual bruising Neurologic: Reports Normal hearing present, Denies confusion, Denies headache(s) and Denies weakness Psychiatric: Psychiatric: Denies anxiety and Denies confusion Endocrine: Endocrine: Denies excessive sweating and Denies fatigue Hematologic/Lymphatic: Hematologic/Lymphatic: Denies ea
[2020-12-25 16:11] LABS: Glucose Point of Care 107 (65-105)
[2020-12-25] MEDS: RIVAROXABAN 20 MG TABLET PO (17:38)
[2020-12-25] MEDS: METOPROLOL TARTRATE 50 MG TAB 100 MG PO (20:46)
[2020-12-25 20:58] LABS: Glucose Point of Care 106 (65-105)
[2020-12-26] VITALS (30 sets, daily range): BP systolic 94–130; BP diastolic 47–93; PULSE 74–140; RESP 11–18; TEMP 35.8–36.4; O2SAT 92–100
[2020-12-26] MEDS: METOPROLOL TARTRATE 50 MG TAB 100 MG PO ×3 (08:53→20:23)
[2020-12-26] MEDS: LOSARTAN POTASSIUM 12.5 MG TABLET PO (08:54)
[2020-12-26] MEDS: FUROSEMIDE INJ 40 MG/4 ML VIAL IV PUSH ×2 (08:54→20:23)
[2020-12-26 09:09] LABS: Hematocrit 51.4 % (42.0-52.0); Hemoglobin 17.4 g/dL (14.0-18.0); Mean Corpuscular HGB Conc 33.9 g/dl (32-36); Mean Corpuscular Volume 85.5 fl (80-100); Mean Platelet Volume 10.8 fl (7.4-10.4); Platelet Count Result 282 k/mm3 (150-375); Red Blood Count 6.01 M/mm3 (4.6-6.20); Red Cell Distribution Width 13.5 % (11.5-14.5); White Blood Count 10.4 K/mm3 (4.5-10.0)
[2020-12-26 09:23] LABS: Anion Gap 6 mmol/L (8-16); Blood Urea Nitrogen 19 mg/dL (9-20); Calcium 9.3 mg/dL (8.4-10.2); Carbon Dioxide 28 mmol/L (22-30); Chloride 103 mmol/L (98-107); Estimated CRCL calculation 105 ml/min; Estimated Glomerular Filt Rate > 60; Glucose 112 mg/dL (75-110); Magnesium 2.1 mg/dL (1.6-2.3); Potassium 4.3 mmol/L (3.4-5.0); Sodium 137 mmol/L (137-145)
--- NOTE | 2020-12-26 09:43 | PM.PNCARD ---
Progress Note: A&P Assessment and Plan (1) Paroxysmal atrial fibrillation: Code(s): I48.0 - Paroxysmal atrial fibrillation Status: Acute Assessment and Plan: He has a chads Vasc score of at least 2 and could be as high as 5. Reportedly he did have a history of TIA. He likely has diabetes also as well as a history of high blood pressure and with his volume overload/CHF presentation; his chads Vasc score would be 5. Continue Xarelto. - change metoprolol to 100 mg twice daily. Will discontinue digoxin as of tomorrow morning as this has not appreciably improved heart rate control. Furthermore, I anticipate he very well may require amiodarone to assist in cardioversion and/or maintenance of sinus rhythm post cardioversion. -ARLETH guided cardioversion today. Recommendations to follow. -check BMP and CBC, magnesium. Severe LV dysfunction likely tachycardia induced cardiomyopathy although cannot entirely exclude underlying CAD. Eventual outpatient stress test versus coronary angiogram. (2) Congestive heart failure: Code(s): I50.9 - Heart failure, unspecified Status: Acute Assessment and Plan: Acute decompensated systolic congestive heart failure with severe LV systolic dysfunction EF 20-25%. Improved, but patient remains volume overloaded. Volume overload related to AFib with RVR. Continue IV Lasix 40 mg IV q.12 hours. Repeat basic metabolic panel morning. Continue Losartan 12.5 mg p.o. daily and up titrate as able. Consider adding spironolactone if blood pressure will allow, stable thus far. Add spironolactone post cardioversion as tolerated. Anticipate transition to oral Lasix tomorrow. (3) Cardiomyopathy: Code(s): I42.9 - Cardiomyopathy, unspecified Status: Acute Assessment and Plan: Probably related to atrial fibrillation with rapid ventricular response (4) Essential hypertension: Code(s): I10 - Essential (primary) hypertension Status: Acute Assessment and Plan: Controlled (5) Mixed hyperlipidemia: Code(s): E78.2 - Mixed hyperlipidemia Status: Acute (6) Elevated blood sugar: Code(s): R73.9 - Hyperglycemia, unspecified Status: Deleted Assessment and Plan: A1c 6.1% Subjective Date/time seen: Date of service: 12/26/20 09:43 Interval history: 65-year-old with atrial fibrillation with RVR and heart failure admitted for shortness of breath Feels well this morning. Some CRENSHAW with activity. Heart rate very fast especially with activity. NPO for anticipated ARLETH guided cardioversion today. No chest pain or palpitations. No dizziness. Remains in AFib with RVR. Review of Systems Review of Systems: All systems reviewed & are unremarkable except as noted in HPI and below Constitutional: Constitutional: Denies excessive sweating, Denies fatigue, Denies headache(s) and Denies weakness Eyes: Eyes: Denies blurry vision ENT: Reports Normal hearing present, Denies headache(s), Denies lip swelling and Denies neck pain Cardiovascular: Cardiovascular: Reports chest pain, Reports dyspnea and Reports dyspnea on exertion Respiratory: Respiratory: Reports dyspnea and Reports dyspnea on exertion Gastrointestinal: Gastrointestinal: Reports bloating Genitourinary: Genitourinary: Denies dysuria Musculoskeletal: Musculoskeletal: Denies neck pain Integumentary/Breasts: Skin/Breast: Denies dry skin and Denies unusual bruising Neurologic: Reports Normal hearing present, Denies confusion, Denies headache(s) and Denies weakness Psychiatric: Psychiatric: Denies anxiety and Denies confusion Endocrine: Endocrine: Denies excessive sweating and Denies fatigue Hematologic/Lymphatic: Hematologic/Lymphatic: Denies easy bleeding and Denies easy bruising Allergic/Immunologic: Allergic/Immunologic: Denies GI upset with certain foods and Denies lip swelling Exam Narrative: Exam Narrative: Patient is awake alert oriented pleasant and
--- NOTE | 2020-12-26 12:15 | PC.NURSE ---
Pt to laboratory specialist for ARLETH
--- NOTE | 2020-12-26 12:40 | WPDMODSED ---
Moderate Sedation Note-Pt Data Patient Data Diagnosis: Atrial fibrillation with rapid ventricular response Present Complaint: None Procedure to be performed/Plan: Transesophageal echocardiographic guided elective electrical cardioversion Allergies Allergy/AdvReac Type Severity Reaction Status Date / Time amoxicillin Allergy Unknown Unknown Verified 12/22/20 08:59 Penicillins Allergy Unknown Unknown Verified 12/22/20 08:59 Home Medications Medication Instructions Recorded Confirmed Type albuterol sulfate 90 mcg/actuation 2 inhalation INHALATION Q4H PRN 12/31/19 12/22/20 Rx aerosol inhaler #6.7 gm ascorbic acid (vitamin C) 500 mg PO DAILY 12/22/20 12/22/20 History cholecalciferol (vitamin D3) 125 mcg PO DAILY 12/22/20 12/22/20 History [Dialyvite Vitamin D] cod liver oil 1 cap PO ONCE 12/22/20 12/22/20 History magnesium 400 mg PO DAILY 12/22/20 12/22/20 History potassium 99 mg PO DAILY 12/22/20 12/22/20 History saw palmetto 1,000 mg PO DAILY 12/22/20 12/22/20 History Current Medications: Active Medications Dextrose (Dextrose 50% 25 Gm/50 Ml Syringe) 12.5 gm IV PUSH PRN PRN; Protocol PRN Reason: Hypoglycemia Furosemide (Furosemide Inj 40 Mg/4 Ml Vial) 40 mg IV PUSH Q12HR [facility] Last Admin: 12/26/20 08:54 Dose: 40 mg Documented by: Glucagon (Glucagon For Inj 1 Mg Vial) 1 mg IM PRN PRN; Protocol PRN Reason: Hypoglycemia Glucose (Glucose Oral Gel 15 Gm Of Glucse In 37.5 Gm Tube) 15 gm PO PRN PRN; Protocol PRN Reason: Hypoglycemia Dextrose (Dextrose 5% 1,000 Ml) 1,000 mls @ 100 mls/hr IVPB PRN PRN; Protocol PRN Reason: Hypoglycemia Levalbuterol HCl (Levalbuterol Hfa (*Sp) 15 Gm Inhaler) 2 puff INHALATION Q6HRT PRN PRN Reason: Shortness Of Breath Losartan Potassium (Losartan Potassium 12.5 Mg Tablet) 12.5 mg PO QAM [facility] Last Admin: 12/26/20 08:54 Dose: 12.5 mg Documented by: Metoprolol Tartrate (Metoprolol Tartrate 50 Mg Tab) 100 mg PO Q12HR [facility] Last Admin: 12/26/20 08:53 Dose: 100 mg Documented by: Rivaroxaban (Rivaroxaban 20 Mg Tablet) 20 mg PO DAILY@1700 [facility] Last Admin: 12/25/20 17:38 Dose: 20 mg Documented by: Sedation/Anesthesia: No previous sedation/anesthesia problems (including family history). [facility] Past Medical History Medical History Asthma Essential hypertension Mild intermittent asthma without complication Mixed hyperlipidemia Paroxysmal atrial fibrillation Tinnitus Surgical History Surgical History H/O cataract extraction Family History Family History Mother Family history of atrial fibrillation Hypertension Cerebrovascular accident Father Family history of atrial fibrillation Chronic obstructive pulmonary disease Hypertension Congestive heart failure Social History Social History Social History: The patient lives with his and mother who was in her 90s. His is the durable power securities attorney for healthcare. He desires to be a full code. 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 He used to smoke cigars until 10/14/1979. He does not use any alcohol, marijuana, or illicit drugs. Smoking status: Never smoker Smoking end date: 10/14/79 Alcohol intake: never Substance use: never Living arrangements: with family Occupation/Education: occupation Gender identity (if verbalized by the patient): Male Spiritual care concerns: No Mod Sed Physical Exam Physical Exam Pre Procedural Exam: Normal: Appearance, Eyes, Ears, Nose, Neck (Supple, normal range of motion), Throat (Posterior hypopharynx clear, nonerythematous), Airway (Normal anatomy, no obstruction), Lungs (Clear to auscultation bilaterally), Heart Size, Heart Rate (Tachycardic), Neuro Exam, Abdomen, Liver, Extremities and S
[2020-12-26 13:31] LABS: Glucose Point of Care 117 (65-105)
[2020-12-26 13:31] LABS: Glucose Point of Care 126 (65-105)
--- NOTE | 2020-12-26 14:30 | WPDTECDV ---
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 Patient started on systemic anticoagulation however duration of atrial fibrillation of unknown so transesophageal echocardiographic guidance necessary prior to attempt at cardioversion. Procedure in detail: After verbal and written informed consent was obtained the patient risks, benefits, and alternatives explained in detail the patient agreed to proceed with the plan of care as outlined above. Patient was evaluated at bedside in the [facility] procedure room. On examination, neck was supple with normal range of motion, no restrictions to opening of the oral cavity, jaw angle and posterior hypopharynx was clear. Lungs were clear to auscultation. Patient was placed in appropriate 30 to 45 degree angle in a supine, slight left lateral decubitus position. Patient was monitored throughout the study with telemetry, oxygen saturation, end-tidal CO2 monitoring, blood pressure, heart rate, and respirations. Anterior and posterior defibrillator pads placed in the appropriate positions. The posterior hypopharynx was then locally anesthetized using repeated administration of Hurricaine spray as well as gargled viscous lidocaine. After local anesthetic of the posterior hypopharynx was achieved and the oral bite block placed, moderate sedation was administered. Through the oral bite block, the transesophageal echocardiogram probe was advanced into the posterior hypopharynx and into the esophagus easily and without complication. Multiple, multiplanar echocardiographic images were obtained in multiple standard re-projections. Pulsed wave, continuous-wave, and color-flow Doppler were utilized in conjunction with this study. At the conclusion of the study, the transesophageal echocardiogram probe was removed easily and without complication. Patient tolerated the procedure well without difficulty. Patient was in atrial fibrillation throughout the study. Sedation: Moderate Sedation/Anesthesia administration: Patient denied previous intolerance or complications with anesthesia/sedation. Please see sedation note for documentation of the pre-procedure physical examination. As noted above, after adequate local anesthesia of the posterior hypopharynx was achieved, a total of 2mg intravenous Versed and a total of 50mcg intravenous Fentanyl in multiple divided doses was utilized for moderate sedation. Sedation start time was 1259 and end time was 1329 for a total of 30 minutes [id number] intra-procedure time. Sedation was administered by a qualified observer Antoinette Christina RN under my supervision with intra-procedure [id number] observation and management throughout the entirety of the procedure. There were no other issues or complications and patient tolerated the procedure well and sedation protocol well and I was present for the entirety. Patient tolerated sedation very well. Findings: Findings: Left ventricular and right ventricular size is mildly enlarged. There is severe LV systolic dysfunction estimated 20-25%. Right ventricular systolic function is [id number] reduced. Mild concentric left ventricular hypertrophy noted. Moderate left and mild right atrial
[2020-12-26] MEDS: RIVAROXABAN 20 MG TABLET PO (16:16)
--- NOTE | 2020-12-26 17:03 | PM.IMPN ---
Progress Note: A&P Assessment and Plan (1) Paroxysmal atrial fibrillation: Code(s): I48.0 - Paroxysmal atrial fibrillation Status: Acute Assessment and Plan: [id number] score is 2, possibly as high as 5 with possible history of TIA and DM. Telemetry reviewed showing atrial fibrillation. Rate is controlled at this time. Echocardiogram reviewed. -anticoagulation with Xarelto will be initiated. -diltiazem drip has been discontinued -continue metoprolol -cardiology following and input is appreciated. Planning for outpatient elective cardioversion. Probable stress test vs coronary angiogram as outpatient. -patient will need formal sleep study. Apnea link highly suspicious for pathologic breathing disorder on 12/22/2020. Will continue current treatment. 12/26/20 17:03 Patient is 65-year-old male with history of atrial fibrillation patient had not been taking his aspirin and metoprolol as prescribed and to the metoprolol whenever he felt like it, patient presented emergency department with a complaint shortness of breath lower extremity edema and was found to be intubated fibrillation with RVR patient was started on diltiazem drip and was given IV Lasix his symptoms are improved his rate is improving, cardiac echo showed severely reduced systolic function with ejection fraction in 25%, patient is now off diltiazem drip and on metoprolol the rate is trending down, patient is scheduled cardiac catheterization later today and will follow-up, patient denies any complaint of chest pain or shortness of breath currently (2) Systolic CHF: Code(s): I50.20 - Unspecified systolic (congestive) heart failure Status: Acute Assessment and Plan: Acute systolic CHF. Echocardiogram reviewed which showed severely reduced EF of 20-25%. BNP 1940. -cardiology following input appreciated -continue metoprolol -IV Lasix 40 mg b.i.d. -spironolactone being considered per Cardiology as BP allows -low-dose losartan has been initiated. Monitor and uptitrate as BP allows -weight patient daily. Monitor intake/output. Heart healthy diet. Is stays okay possible discharge tomorrow morning. (3) Volume overload: Code(s): E87.70 - Fluid overload, unspecified Status: Acute Assessment and Plan: Secondary to AFib with RVR. -continue diuresis with Lasix 40 mg IV b.i.d. -monitor volume status closely (4) High risk for diabetes mellitus: Code(s): Z91.89 - Other specified personal risk factors, not elsewhere classified Status: Acute Assessment and Plan: A1c is 6.1. Fasting and random blood sugars have been elevated in the 110s-130s. -initiate Accu-Cheks, sliding scale insulin, and hypoglycemic protocol -trend glucose patterns -he will need to be discharged on some oral hypoglycemic. Will plan to initiate a low-dose metformin prior to discharge. -education will need to be provided for monitoring glucose. (5) Mild intermittent asthma without complication: Code(s): J45.20 - Mild intermittent asthma, uncomplicated Status: Acute Assessment and Plan: Not in acute exacerbation. No acute issues at this time. Maintaining adequate O2 saturations on room air. -levalbuterol available as needed (6) Subclinical hypothyroidism: Code(s): E03.9 - Hypothyroidism, unspecified Status: Acute Assessment and Plan: TSH is only minimally elevated. Free T4 and T3 within normal limits. -recommend repeat TSH in 4-6 weeks upon improvement of acute illness (7) Mixed hyperlipidemia: Code(s): E78.2 - Mixed hyperlipidemia Status: Acute Assessment and Plan: He is on fish oil supplements. -evaluate lipid panel -statin will likely need to be initiated Additional Plan Cardiology consult noted. Will continue current plan of care and treatment. Patient is scheduled for cardioversion in the morning. Subjective Date/time seen: 12/26/20 17:
[2020-12-26 18:00] LABS: Glucose Point of Care 139 (65-105)
[2020-12-26 20:50] LABS: Glucose Point of Care 125 (65-105)
[2020-12-27] VITALS (9 sets, daily range): BP systolic 99–120; BP diastolic 59–86; PULSE 79–122; RESP 18–20; TEMP 36.2–36.3; O2SAT 96–99
[2020-12-27 05:26] LABS: Anion Gap 5 mmol/L (8-16); Blood Urea Nitrogen 28 mg/dL (9-20); Carbon Dioxide 30 mmol/L (22-30); Chloride 103 mmol/L (98-107); Estimated CRCL calculation 92 ml/min; Estimated Glomerular Filt Rate > 60; Glucose 103 mg/dL (75-110); Magnesium 2.1 mg/dL (1.6-2.3); Sodium 138 mmol/L (137-145)
[2020-12-27] MEDS: METOPROLOL TARTRATE 50 MG TAB 100 MG PO (06:13)
[2020-12-27 08:04] LABS: Glucose Point of Care 128 (65-105)
[2020-12-27] MEDS: LOSARTAN POTASSIUM 12.5 MG TABLET PO (08:22)
[2020-12-27] MEDS: FUROSEMIDE 40 MG TABLET PO (08:22)
[2020-12-27] MEDS: SPIRONOLACTONE 25 MG TABLET PO (08:22)
[2020-12-27] MEDS: DIGOXIN 250 MCG TABLET PO (09:22)
--- NOTE | 2020-12-27 10:39 | PM.PNCARD ---
Progress Note: A&P Assessment and Plan (1) Paroxysmal atrial fibrillation: Code(s): I48.0 - Paroxysmal atrial fibrillation Status: Acute Assessment and Plan: He has a chads Vasc score of at least 2 and could be as high as 5. Reportedly he did have a history of TIA. He likely has diabetes also as well as a history of high blood pressure and with his volume overload/CHF presentation; his chads Vasc score would be 5. Continue Xarelto. -ARLETH revealed left atrial appendage thrombus, spontaneous contrast in left atrium and atrial septal defect with aneurysmal septal motion. EF 20-25%. -therefore, continue rate control strategy as we were unable to perform cardioversion on systemic anticoagulation without interruption. Plan for repeat ARLETH guided cardioversion attempt in 4 weeks. Follow up in the office in the next 1-2 weeks. -continue metoprolol tartrate 100 mg 3 times daily as outpatient for now. Discussed transition to long-acting Toprol XL. Digoxin 0.25 mg daily. -continue Lasix 40 mg daily and additional spironolactone 25 mg daily this morning. - Basic metabolic panel in 1 week as an outpatient. -discussed with patient in detail. He verbalized understanding and agreed with plan of care. He is very complicating home and feels quite well. Patient may be discharged home from cardiac perspective follow-up as scheduled. Disposition per hospitalist service. (2) Congestive heart failure: Code(s): I50.9 - Heart failure, unspecified Status: Acute Assessment and Plan: Compensated. Continue current medical therapy with Lasix 40 mg daily, spironolactone 25 mg daily added. Basic metabolic panel in 1 week. Digoxin 0.25 mg added today. Anticipate transition to oral Lasix tomorrow. (3) Cardiomyopathy: Code(s): I42.9 - Cardiomyopathy, unspecified Status: Acute Assessment and Plan: EF 20-25%. Probably related to atrial fibrillation with rapid ventricular response. Incidental notation of atrial septal defect with aneurysmal septal motion. (4) Essential hypertension: Code(s): I10 - Essential (primary) hypertension Status: Acute Assessment and Plan: Controlled (5) Mixed hyperlipidemia: Code(s): E78.2 - Mixed hyperlipidemia Status: Acute (6) Elevated blood sugar: Code(s): R73.9 - Hyperglycemia, unspecified Status: Deleted Assessment and Plan: A1c 6.1% Subjective Date/time seen: Date of service: 12/27/20 10:39 Interval history: 65-year-old with atrial fibrillation with RVR and heart failure admitted for shortness of breath Heart rate better controlled overnight but remains in atrial fibrillation with intermittent RVR. Tolerating medications. Feels well this morning. Some CRENSHAW with activity. Heart rate very fast especially with activity. ARLETH yesterday unable to perform cardioversion due to left atrial appendage thrombus. No chest pain or palpitations. No dizziness. . Review of Systems Review of Systems: All systems reviewed & are unremarkable except as noted in HPI and below Constitutional: Constitutional: Denies excessive sweating, Denies fatigue, Denies headache(s) and Denies weakness Eyes: Eyes: Denies blurry vision ENT: Reports Normal hearing present, Denies headache(s), Denies lip swelling and Denies neck pain Cardiovascular: Cardiovascular: Reports chest pain, Reports dyspnea and Reports dyspnea on exertion Respiratory: Respiratory: Reports dyspnea and Reports dyspnea on exertion Gastrointestinal: Gastrointestinal: Reports bloating Genitourinary: Genitourinary: Denies dysuria Musculoskeletal: Musculoskeletal: Denies neck pain Integumentary/Breasts: Skin/Breast: Denies dry skin and Denies unusual bruising Neurologic: Reports Normal hearing present, Denies confusion, Denies headache(s) and Denies weakness Psychiatric: Psychiatric: Denies anxiety and Denies confusion Endocrine: Endocrine: Denies excessive swe
--- NOTE | 2020-12-27 11:33 | PM.DS ---
DS: Admitting Diagnosis Admitting Diagnosis Admitting Diagnosis: Chief Complaint: Shortness of breath DS: Discharge Diagnosis Discharge Diagnosis (1) Paroxysmal atrial fibrillation: Code(s): I48.0 - Paroxysmal atrial fibrillation Status: Acute Assessment and Plan: [id number] score is 2, possibly as high as 5 with possible history of TIA and DM. Telemetry reviewed showing atrial fibrillation. Rate is controlled at this time. Echocardiogram reviewed. -anticoagulation with Xarelto will be initiated. -diltiazem drip has been discontinued -continue metoprolol -cardiology following and input is appreciated. Planning for outpatient elective cardioversion. Probable stress test vs coronary angiogram as outpatient. -patient will need formal sleep study. Apnea link highly suspicious for pathologic breathing disorder on 12/22/2020. Will continue current treatment. 12/26/20 17:03 Patient is 65-year-old male with history of atrial fibrillation patient had not been taking his aspirin and metoprolol as prescribed and to the metoprolol whenever he felt like it, patient presented emergency department with a complaint shortness of breath lower extremity edema and was found to be intubated fibrillation with RVR patient was started on diltiazem drip and was given IV Lasix his symptoms are improved his rate is improving, cardiac echo showed severely reduced systolic function with ejection fraction in 25%, patient is now off diltiazem drip and on metoprolol the rate is trending down, patient is scheduled cardiac catheterization later today and will follow-up, patient denies any complaint of chest pain or shortness of breath currently (2) Systolic CHF: Code(s): I50.20 - Unspecified systolic (congestive) heart failure Status: Acute Assessment and Plan: Acute systolic CHF. Echocardiogram reviewed which showed severely reduced EF of 20-25%. BNP 1940. -cardiology following input appreciated -continue metoprolol -IV Lasix 40 mg b.i.d. -spironolactone being considered per Cardiology as BP allows -low-dose losartan has been initiated. Monitor and uptitrate as BP allows -weight patient daily. Monitor intake/output. Heart healthy diet. Is stays okay possible discharge tomorrow morning. (3) Volume overload: Code(s): E87.70 - Fluid overload, unspecified Status: Acute Assessment and Plan: Secondary to AFib with RVR. -continue diuresis with Lasix 40 mg IV b.i.d. -monitor volume status closely (4) High risk for diabetes mellitus: Code(s): Z91.89 - Other specified personal risk factors, not elsewhere classified Status: Acute Assessment and Plan: A1c is 6.1. Fasting and random blood sugars have been elevated in the 110s-130s. -initiate Accu-Cheks, sliding scale insulin, and hypoglycemic protocol -trend glucose patterns -he will need to be discharged on some oral hypoglycemic. Will plan to initiate a low-dose metformin prior to discharge. -education will need to be provided for monitoring glucose. (5) Mild intermittent asthma without complication: Code(s): J45.20 - Mild intermittent asthma, uncomplicated Status: Acute Assessment and Plan: Not in acute exacerbation. No acute issues at this time. Maintaining adequate O2 saturations on room air. -levalbuterol available as needed (6) Subclinical hypothyroidism: Code(s): E03.9 - Hypothyroidism, unspecified Status: Acute Assessment and Plan: TSH is only minimally elevated. Free T4 and T3 within normal limits. -recommend repeat TSH in 4-6 weeks upon improvement of acute illness (7) Mixed hyperlipidemia: Code(s): E78.2 - Mixed hyperlipidemia Status: Acute Assessment and Plan: He is on fish oil supplements. -evaluate lipid panel -statin will likely need to be initiated DS: Summary Hospital Course Reason for hospitalization: Date/Time: 12/22/20 1
[2020-12-27 12:03] LABS: Glucose Point of Care 109 (65-105)
== END 2020-12-27 12:42 | disposition home or self-care (01) | DRG 201 ==
LOC: ANHED 10:48 → ANHIMU 11:03
PROVIDERS: Internal Medicine Cardiovascular Disease; Nurse Practitioner; Physician Assistant; Admitting Provider Family Medicine; Emergency Provider General Practice; PCP Family Medicine; Visit Provider Family Medicine
PROC: B24BZZ4 Ultrasonography of Heart with Aorta, Transesophageal (ICD-10-PCS; CPT 93312; principal; 2020-12-26 12:30)
DX: I48.0 Paroxysmal atrial fibrillation (principal); I50.21 Acute systolic (congestive) heart failure; I11.0 Hypertensive heart disease with heart failure; I42.9 Cardiomyopathy, unspecified; I51.3 Intracardiac thrombosis, not elsewhere classified; Q21.1 Atrial septal defect; J45.20 Mild intermittent asthma, uncomplicated; E78.2 Mixed hyperlipidemia; E03.9 Hypothyroidism, unspecified; R73.9 Hyperglycemia, unspecified; H93.19 Tinnitus, unspecified ear; Z91.89 Other specified personal risk factors, not elsewhere classified; Z28.21 Immunization not carried out because of patient refusal; Z91.14 Patient's other noncompliance with medication regimen; Z79.899 Other long term (current) drug therapy; Z86.73 Personal history of transient ischemic attack (TIA), and cerebral infarction without residual deficits; Z98.49 Cataract extraction status, unspecified eye
CPT/HCPCS: 36415; 36600; 71045; 80048; 80061; 80076; 82375; 82805; 82948; 83036; 83050; 83735; 83880; 84439; 84443; 84480; 84484; 85025; 85027; 85610; 85730; 93005; 93306; 93312; 93320; 93325; 94640; 94762; 96365; 96366; 96372; 96375; 96376; 99285; A9270; G0378; G0379; J1160; J1650; J1940; J2250; J3010; J7040

== ENCOUNTER → 2021-01-28 02:27 | Outpatient (CLI) | payer MEDICAID, SELFPAY ==
[2021-01-28 19:43] LABS: SARS-CoV-2 RNA PCR Negative
== END ==
PROVIDERS: PCP Family Medicine; Visit Provider Internal Medicine Cardiovascular Disease
DX: Z01.812 Encounter for preprocedural laboratory examination (principal); Z20.822 Contact with and (suspected) exposure to COVID-19
CPT/HCPCS: C9803; U0003; U0005

== ENCOUNTER 2021-01-31 00:50 | Day surgery (SDC) | payer SELFPAY ==
[2021-01-30 14:59] VITALS: BMI 36.3
[2021-01-31] VITALS (13 sets, daily range): BP systolic 103–166; BP diastolic 61–122; PULSE 79–127; RESP 14–21; TEMP 36–36.6; O2SAT 95–98; BMI 36.3
--- NOTE | 2021-01-31 07:00 | ECG_ITS ---
Measurements Intervals [place] Rate: 84 P: [place]: 0 QRS: -59 QRSD: 92 T: 79 QT: 344 QTc: 408 Interpretive Statements ATRIAL FIBRILLATION LEFT ANTERIOR FASCICULAR BLOCK INFERIOR INFARCT, AGE INDETERMINATE BORDERLINE ST-T WAVE ABNORMALITY- ANTEROLAT/HIGH LAT LEADS BASELINE ARTIFACT- II, III ABNORMAL ECG Electronically Signed On 01-31-2021 10:47:37 CDT by Branden Curry D.O.
[2021-01-31 11:12] LABS: Anion Gap 8 mmol/L (8-16); Blood Urea Nitrogen 19 mg/dL (9-20); Calcium 9.5 mg/dL (8.4-10.2); Carbon Dioxide 27 mmol/L (22-30); Chloride 103 mmol/L (98-107); Estimated CRCL calculation 118 ml/min; Estimated Glomerular Filt Rate > 60; Glucose 110 mg/dL (75-110); Magnesium 1.9 mg/dL (1.6-2.3); Potassium 4.5 mmol/L (3.4-5.0); Sodium 138 mmol/L (137-145)
--- NOTE | 2021-01-31 11:13 | WPDMODSED ---
Moderate Sedation Note-Pt Data Patient Data Diagnosis: Atrial fibrillation Present Complaint: Atrial fibrillation Procedure to be performed/Plan: Multiplanar transesophageal echocardiography with color-flow pulse-wave Doppler Moderate sedation Electrical cardioversion Allergies Allergy/AdvReac Type Severity Reaction Status Date / Time amoxicillin Allergy Unknown Unknown Verified 01/30/21 14:52 Penicillins Allergy Unknown Unknown Verified 01/30/21 14:52 bee venom protein (honey bee) Allergy Swelling Verified 01/30/21 14:52 [bees] Home Medications Medication Instructions Recorded Confirmed Type ascorbic acid (vitamin C) 500 mg PO DAILY 12/22/20 01/30/21 History cholecalciferol (vitamin D3) 125 mcg PO DAILY 12/22/20 01/30/21 History [Dialyvite Vitamin D] cod liver oil 1 cap PO BID 12/22/20 01/30/21 History magnesium 400 mg PO DAILY 12/22/20 01/30/21 History potassium 99 mg PO DAILY 12/22/20 01/30/21 History saw palmetto 1,000 mg PO DAILY 12/22/20 01/30/21 History digoxin [Digitek] 250 mcg PO QAM #30 tablet 12/27/20 01/30/21 Rx furosemide 40 mg PO DAILY #30 tablet 12/27/20 01/30/21 Rx metoprolol tartrate 100 mg PO Q8HR #90 tablet 12/27/20 01/30/21 Rx rivaroxaban [Xarelto] 20 mg PO DAILY@1700 #30 tablet 12/27/20 01/30/21 Rx spironolactone 25 mg PO QAM #30 tablet 12/27/20 01/30/21 Rx chromium picolinate 200 mcg PO DAILY 01/30/21 01/30/21 History losartan 25 mg PO DAILY 01/30/21 01/30/21 History Current Medications: Active Medications Sodium Chloride (Normal Saline Iv) 1,000 mls @ 30 mls/hr IV CONT .Q24H MAKENZIE Sedation/Anesthesia: No previous sedation/anesthesia problems (including family history). [facility] Past Medical History Medical History Asthma Essential hypertension Mild intermittent asthma without complication Mixed hyperlipidemia Paroxysmal atrial fibrillation Tinnitus Surgical History Surgical History H/O cataract extraction Family History Family History Mother Family history of atrial fibrillation Hypertension Cerebrovascular accident Father Family history of atrial fibrillation Chronic obstructive pulmonary disease Hypertension Congestive heart failure Social History Social History Social History: The patient lives with his and mother who was in her 90s. 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 He desires to be a full code. 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 He used to smoke cigars until 10/14/1979. He does not use any alcohol, marijuana, or illicit drugs. Smoking status: Never smoker Smoking end date: 10/14/79 Alcohol intake: never Substance use: never Gender identity (if verbalized by the patient): Male Spiritual care concerns: No Mod Sed Physical Exam Physical Exam Pre Procedural Exam: Normal: Appearance, Eyes, Ears, Nose, Neck, Throat, Airway, Lungs, Heart Rate, Neuro Exam, Abdomen, Extremities and Skin and Variation: Heart Rhythm (Irregular irregular) Hours since solid foods: 12 Hours since liquid intake: 12 Internal Medicine - PN: Obj Da Vital Signs Vital Signs: Vital Signs - 24 hr 01/31/21 10:45 Temperature 36.6 C Pulse Rate 79 Respiratory Rate 21 H Blood Pressure 134/81 Pulse Oximetry 95 Meds/Results Medications: Active Medications Generic Name Dose Route Start Last Admin Trade Name Freq PRN Reason Stop Dose Admin Sodium Chloride 1,000 mls @ 30 mls/hr 01/30/21 15:10 Normal Saline Iv IV CONT .Q24H MAKENZIE Labs CBC & Chem 7: 01/31/21 10:28 Labs: Laboratory Results - last 24 hr 01/31/21 10:28 Sodium 138 Potassium 4.5 Chloride 103 Carbon Dioxide 27 Anion Gap 8 BUN 19 Creatinine 0.70 Estim Creat Clear
--- NOTE | 2021-01-31 12:09 | WPDTECDV ---
ARLETH with Cardioversion Date of procedure: 01/31/21 Procedure Type: Multiplanar transesophageal echocardiography with color flow and pulse wave Doppler Elective electrical cardioversion Moderate sedation Diagnosis: Atrial fibrillation Indications: Atrial fibrillation Description of Procedure: After discussing the risks benefits alternatives of the procedure patient agreeable via verbal and written informed consent. Risks discussed included shocking into more problematic heart rhythm, bleeding, pain, infection, need for surgery, , stroke. After time-out was taken and after previously establishing continuous telemetry monitoring, serial blood pressure assessments and pulse oxygenation, sedation was initiated. Procedure start time 11:43 a.m. Procedure stop time 12:00 p.m. Blood loss: None Complications: None Medications were administered patient was monitored by Leah Shepherd RN Sedation: Total 4 mg Versed, 50 mcg of fentanyl given in divided dosages. Hurricaine spray to hypopharynx x2 for topical anesthetic Findings: Mild biventricular enlargement. Left ventricular ejection fraction is around 40 %. Moderate left atrial enlargement, mild right atrial enlargement. Atrial septum is thin hypermobile with color flow evidence of bidirectional shunting. No pericardial effusion. The aortic root was normal in size. Left atrial appendage is free of thrombus. Pulse wave velocities are 30-50 centimeters/second. Mitral valve but is normal in appearance with moderate mitral regurgitation. Tricuspid valve is also normal in appearance with [id number] tricuspid regurgitation. The aortic valve is trileaflet and normal in appearance with trivial aortic insufficiency. Pulmonic valve is also normal with trivial pulmonic insufficiency. Electrical cardioversion: Temporarily successful methodist of sinus rhythm using at 1st 150 joules of biphasic energy and then 125 joules of synchronized biphasic energy. On both attempts the patient quickly reverted back into atrial fibrillation. Conclusion: 1. Biventricular enlargement with mild to moderately decreased left ventricular systolic function of around 40% 2. Moderate mitral regurgitation 3. [id number] tricuspid regurgitation 4. No left atrial appendage thrombus 5. Biatrial enlargement 6. Temporarily successful methodist of sinus rhythm using 150 joules of biphasic energy and then unfortunately patient reverted back into atrial fibrillation. One hundred twenty-five joules of synchronized biphasic energy was then used which also was temporarily successful but eventually the patient did go back into atrial fibrillation. 7. Moderate sedation Plan: Stop digoxin completely at this point. Will lower his metoprolol dose down to 50 mg p.o. b.i.d. and add amiodarone for rhythm control. Will start at 200 mg p.o. daily and plan for repeat outpatient elective cardioversion in 6 weeks. No need for ARLETH at that point as long as he does not miss any doses anticoagulation.
--- NOTE | 2021-01-31 13:35 | SUR.PHASEII ---
1315 - Pt instructed on post ARLETH/CV care with stated understanding. Instructed on follow up appointment, medication changes, and activity restriction with stated understanding. IV d/c'd with catheter intact. Discharged via wheelchair to personal vehicle - driven by pt's .
== END 2021-01-31 13:20 | disposition home or self-care (01) ==
PROVIDERS: PCP Family Medicine; Visit Provider Internal Medicine Cardiovascular Disease
PROC: 5A2204Z Restoration of Cardiac Rhythm, Single (ICD-10-PCS; principal; 2021-01-31 11:30)
PROC: (CPT 93312; 2021-01-31 11:30)
DX: I48.0 Paroxysmal atrial fibrillation (principal); I34.0 Nonrheumatic mitral (valve) insufficiency; I36.1 Nonrheumatic tricuspid (valve) insufficiency; Z79.01 Long term (current) use of anticoagulants; I10 Essential (primary) hypertension; J45.20 Mild intermittent asthma, uncomplicated; E78.2 Mixed hyperlipidemia
CPT/HCPCS: 36415; 80048; 83735; 92960; 93005; 93312; 93320; 93325; J2250; J3010; J7040

== ENCOUNTER → 2021-03-11 03:43 | Outpatient (CLI) | payer SELFPAY ==
[2021-03-11 19:46] LABS: SARS-CoV-2 RNA PCR Negative
== END ==
PROVIDERS: PCP Family Medicine; Visit Provider Internal Medicine Cardiovascular Disease
DX: Z01.812 Encounter for preprocedural laboratory examination (principal); Z20.822 Contact with and (suspected) exposure to COVID-19
CPT/HCPCS: C9803; U0003; U0005

== ENCOUNTER 2021-03-15 01:28 | Day surgery (SDC) | payer SELFPAY ==
[2021-03-14 15:38] VITALS: BMI 38.0
[2021-03-15] VITALS (9 sets, daily range): BP systolic 97–133; BP diastolic 72–92; PULSE 67–111; RESP 12–16; TEMP 35.7–36.4; O2SAT 93–99
--- NOTE | 2021-03-15 07:00 | ECG_ITS ---
Measurements Intervals [place] Rate: 98 P: [place]: 0 QRS: 234 QRSD: 93 T: 35 QT: 376 QTc: 482 Interpretive Statements ATRIAL FIBRILLATION BORDERLINE R WAVE PROGRESSION, ANTERIOR LEADS INFERIOR INFARCT, AGE INDETERMINATE BORDERLINE T WAVE ABNORMALITY- HIGH LATERAL LEADS ABNORMAL ECG Electronically Signed On 03-15-2021 8:53:56 CDT by Branden Curry D.O.
[2021-03-15 08:00] LABS: Anion Gap 8 mmol/L (8-16); Blood Urea Nitrogen 16 mg/dL (9-20); Calcium 9.7 mg/dL (8.4-10.2); Carbon Dioxide 27 mmol/L (22-30); Chloride 104 mmol/L (98-107); Estimated CRCL calculation 93 ml/min; Estimated Glomerular Filt Rate > 60; Glucose 111 mg/dL (75-110); Magnesium 2.2 mg/dL (1.6-2.3); Potassium 4.5 mmol/L (3.4-5.0); Sodium 139 mmol/L (137-145)
--- NOTE | 2021-03-15 09:14 | WPDMODSED ---
Moderate Sedation Note-Pt Data Patient Data Diagnosis: Atrial fibrillation Present Complaint: Atrial fibrillation Procedure to be performed/Plan: Moderate sedation Elective electrical cardioversion Allergies Allergy/AdvReac Type Severity Reaction Status Date / Time amoxicillin Allergy Unknown Unknown Verified 01/30/21 14:52 Penicillins Allergy Unknown Unknown Verified 01/30/21 14:52 bee venom protein (honey bee) Allergy Swelling Verified 01/30/21 14:52 [bees] Home Medications Medication Instructions Recorded Confirmed Type ascorbic acid (vitamin C) 500 mg PO DAILY 12/22/20 03/14/21 History cholecalciferol (vitamin D3) 125 mcg PO DAILY 12/22/20 03/14/21 History [Dialyvite Vitamin D] cod liver oil 3 cap PO BID 12/22/20 03/14/21 History magnesium 400 mg PO DAILY 12/22/20 03/14/21 History potassium 99 mg PO DAILY 12/22/20 03/14/21 History Xarelto 20 mg PO DAILY@1700 #30 tablet 12/27/20 03/14/21 Rx furosemide 40 mg PO DAILY #30 tablet 12/27/20 03/14/21 Rx spironolactone 25 mg PO QAM #30 tablet 12/27/20 03/14/21 Rx chromium picolinate 200 mcg PO DAILY 01/30/21 03/14/21 History losartan 50 mg PO DAILY 01/30/21 03/14/21 History amiodarone 200 mg PO DAILY #30 tablet 01/31/21 03/14/21 Rx metoprolol tartrate 50 mg PO Q12H #60 tablet 01/31/21 03/14/21 Rx Current Medications: Active Medications Sodium Chloride (Normal Saline Iv) 500 mls @ 30 mls/hr IV CONT .[id number] MAKENZIE Sedation/Anesthesia: No previous sedation/anesthesia problems (including family history). [facility] Past Medical History Medical History Asthma Essential hypertension Mild intermittent asthma without complication Mixed hyperlipidemia Paroxysmal atrial fibrillation Tinnitus Surgical History Surgical History H/O cataract extraction Family History Family History Mother Family history of atrial fibrillation Hypertension Cerebrovascular accident Father Family history of atrial fibrillation Chronic obstructive pulmonary disease Hypertension Congestive heart failure Social History Social History Social History: The patient lives with his and mother who was in her 90s. 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 He desires to be a full code. 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 He used to smoke cigars until 10/14/1979. He does not use any alcohol, marijuana, or illicit drugs. Smoking status: Never smoker Smoking end date: 10/14/79 Alcohol intake: never Substance use: never Living arrangements: with family Gender identity (if verbalized by the patient): Male Spiritual care concerns: No Mod Sed Physical Exam Physical Exam Pre Procedural Exam: Normal: Appearance, Eyes, Ears, Nose, Neck, Throat, Airway, Lungs, Heart Size, Heart Rate, Neuro Exam, Abdomen, Extremities and Skin and Variation: Heart Rhythm (Irregular irregular) Hours since solid foods: 12 Hours since liquid intake: 12 Internal Medicine - PN: Obj Da Vital Signs Vital Signs: Vital Signs - 24 hr 03/15/21 07:40 Temperature 35.7 C L Pulse Rate 92 Respiratory Rate 16 Blood Pressure 112/84 Pulse Oximetry 97 Meds/Results Medications: Active Medications Generic Name Dose Route Start Last Admin Trade Name Freq PRN Reason Stop Dose Admin Sodium Chloride 500 mls @ 30 mls/hr 03/15/21 07:00 Normal Saline Iv IV CONT .[id number] MAKENZIE Labs CBC & Chem 7: 03/15/21 07:45 Labs: Laboratory Results - last 24 hr 03/15/21 07:45 Sodium 139 Potassium 4.5 Chloride 104 Carbon Dioxide 27 Anion Gap 8 BUN 16 Creatinine 0.90 Estim Creat Clear Calc 93 Estimated GFR > 60 Glucose 111 H Calcium 9.7 Magnesium 2.2 ASA Classificatio
--- NOTE | 2021-03-15 09:24 | ECG_ITS ---
Measurements Intervals [place] Rate: 73 P: 19 [place]: 202 QRS: -61 QRSD: 97 T: 53 QT: 372 QTc: 412 Interpretive Statements SINUS RHYTHM BORDERLINE R WAVE PROGRESSION, ANTERIOR LEADS INFERIOR INFARCT, AGE INDETERMINATE BORDERLINE T WAVE ABNORMALITY- ANTEROLATERAL LEADS BASELINE ARTIFACT- II, III, AVR, AVF ABNORMAL ECG Electronically Signed On 03-15-2021 11:59:43 CDT by Branden Curry D.O.
--- NOTE | 2021-03-15 09:27 | P.PCNCVR_ITS ---
Cardioversion Cardioversion Date of procedure: 03/15/21 Procedure: 1. Moderate sedation 2. Electrical cardioversion Pre-op diagnosis: Atrial fibrillation Post-op diagnosis: same Indications: Atrial fibrillation Description of procedure: After discussing the risks, benefits alternative procedure patient agreeable via verbal and written informed consent. Risks discussed included skin irritation or burn, stroke, adverse reaction anesthesia, shocking into more problematic heart rhythm, . Time-out was taken procedure was initiated. Procedure start time 9:17 a.m. Procedure stop time 9:25 a.m. Sedation: A total of 3 mg of Versed study 5 mcg fentanyl given in divided dosages. Medications were administered patient was monitored by Antoinette Christina RN Complications: None Blood loss: None Findings: After establishing continuous monitor car operator, pulse oxygenation, serial blood pressure assessment and after time-out was taken, moderate sedation was initiated. After adequate sedation, 200 joules of biphasic synchronized energy was used to restore sinus rhythm from atrial fibrillation. Conclusion: 1. Moderate sedation 2. Successful outpatient elective cardioversion using 200 joules of synchronized biphasic energy to restore sinus rhythm from atrial fibrillation.
== END 2021-03-15 10:57 | disposition home or self-care (01) ==
PROVIDERS: PCP Family Medicine; Visit Provider Internal Medicine Cardiovascular Disease
PROC: 5A2204Z Restoration of Cardiac Rhythm, Single (ICD-10-PCS; principal; 2021-03-15 08:30)
DX: I48.0 Paroxysmal atrial fibrillation (principal); I42.9 Cardiomyopathy, unspecified; I10 Essential (primary) hypertension; E78.2 Mixed hyperlipidemia; J45.20 Mild intermittent asthma, uncomplicated; Z79.01 Long term (current) use of anticoagulants
CPT/HCPCS: 36415; 80048; 83735; 92960; 93005; J2250; J3010; J7030

== ENCOUNTER → 2022-05-31 11:44 | Outpatient (CLI) | payer MEDICARE, SELFPAY ==
--- NOTE | ~2022-05-31 | XR_ITS ---
XR knee RT min 4V 05/31/2022 12:19 INDICATION: Right knee pain PROCEDURE: 4 views right knee COMPARISON: No prior studies for comparison. FINDINGS: Fracture, dislocation or subluxation is not identified. No significant joint effusion. The soft tissues appear within normal limits. No foreign bodies are identified. IMPRESSION: 1: NO ACUTE BONE OR JOINT ABNORMALITY IDENTIFIED. Reviewed, dictated and finalized at location B.
--- NOTE | ~2022-05-31 | XR_ITS ---
XR knee LT min 4V 05/31/2022 12:19 Indication: Left knee pain Procedure: 4 views left knee Comparison: No prior studies for comparison. Findings: No fracture, subluxation or dislocation. Mild osteoarthritis. No joint effusion. No foreign bodies. Impression: 1: Mild osteoarthritis of the left knee. Reviewed, dictated and finalized at location B. Impression: 1: Mild osteoarthritis of the left knee.
--- NOTE | ~2022-05-31 | XR_ITS ---
XR hip LT min 2V 05/31/2022 12:19 Indication: Left hip pain Procedure: 2 views left hip Comparison: No prior studies for comparison. Findings: Mild osteoarthritis of the left hip. No fracture, subluxation or dislocation. No significan t soft tissue abnormality. No foreign bodies. Impression: 1: Mild osteoarthritis of the left hip. Reviewed, dictated and finalized at location B. Impression: 1: Mild osteoarthritis of the left hip.
== END ==
PROVIDERS: PCP Family Medicine; Visit Provider Family Medicine
DX: M25.562 Pain in left knee (principal); M25.561 Pain in right knee; M25.552 Pain in left hip; M17.12 Unilateral primary osteoarthritis, left knee; M16.12 Unilateral primary osteoarthritis, left hip
CPT/HCPCS: 73502; 73564

== ENCOUNTER 2022-07-05 07:19 | Outpatient (CLI) | payer MEDICARE, SELFPAY ==
--- NOTE | 2022-07-17 19:23 | WPDHOMESLEEP ---
Sleep Study - Home Unattended Date of Study: 07/05/22 Ordering Provider: Zehra Strauss, CHILD CARE COORDINATOR Interpreting Provider: Ana Cristina Ibarra, DO Home Sleep Study Type: Apnea Link Air Height: 1.78 m Weight: 117.934 kg Body Mass Index: 37.3 Neck Circumference (inches): 17.75 [place]: 3 Reason for Sleep Study Paroxysmal atrial fibrillation Sleep History The patient is a 67-year-old male with paroxysmal atrial fibrillation, tachycardia induced cardiomyopathy, congestive heart failure, hypertension, hyperlipidemia, asthma and possible transient ischemic attack that had a sleep study ordered by his assembly associate for evaluation of sleep. The patient denies having any sleep issues. The patient denies awakening from sleep short of breath. He denies awakening at night with heartburn, belching or cough. He denies snoring loud enough that others complain. He rarely has trouble sleeping when he has a cold. He denies waking up gasping for air throughout the night. He denies having breathing problems at night observed by himself or others. He rarely sweats excessively at night. He denies having heart palpitations or irregular heartbeats during the night. He denies falling asleep during the day and while driving. He denies sleep paralysis, cataplexy and hypnagogic / hypnopompic hallucinations. He denies feeling afraid of going to sleep. He denies having nightmares. He denies remembering his dreams. He rarely has thoughts racing through his mind. He denies feeling sad, depressed or anxious. He denies having muscular tension. He denies noticing parts of his body jerk. He denies kicking during the night. He denies having crawling and aching feelings in his legs as well as leg pain during the night. He denies grinding his teeth during sleep but rarely awakens with morning jaw pain. He is occasionally bothered by pain during the day but denies being awakened by pain during the night. He denies waking up feeling stiff in the morning. He rarely wakes up with sore achy muscles. He denies waking up with pain in the neck, spine or joints. He goes to bed at 10:00 p.m. on both weekdays and weekends. He is able to fall asleep within 5 minutes. He wakes up once throughout the night to urinate and is able to fall back asleep within 5 minutes. He wakes up at 6:30 a.m. on both weekdays and weekends. He typically gets 8-1/2 hours of sleep per night. He will stay in bed for a few minutes after waking up in the morning. He currently lives with his and mother. He denies consuming any caffeinated beverages within 2 hours of bedtime. He denies engaging in physical exercise before bedtime. He will watch television before falling asleep. He will occasionally take naps in the afternoon or the evening and they are refreshing. He will drink 1 caffeinated beverage per day. He denies tobacco, alcohol and recreational drug use. [facility] Past Medical History Medical History Asthma BMI 36.0-36.9,adult BMI 37.0-37.9, adult Elevated glucose Essential hypertension Left hip pain Left knee pain Mild intermittent asthma without complication Mixed hyperlipidemia Paroxysmal atrial fibrillation Right knee pain Tinnitus Surgical History Surgical History H/O cataract extraction H/O Spinal surgery Family History Family History Mother Family history of atrial fibrillation Hypertension Cerebrovascular accident Dementia Father Family history of atrial fibrillation Chronic obstructive pulmonary disease Hypertension Congestive heart failure Sibling Family history of atrial fibrillation Social History Social History Social History: The patient lives with his and mother who was in her 90s. His is the durable power at
[2022-07-18 04:06] VITALS: BMI 37.3
--- NOTE | 2022-07-27 10:45 | SLEEP ---
PT CARES FOR MOTHER AND IS UNABLE TO COME INTO THE SLEEP LAB FOR A IN LAB TITRATION
== END 2022-07-06 10:54 | disposition home or self-care (01) ==
PROVIDERS: PCP Family Medicine; Visit Provider Nurse Practitioner Adult Health
DX: G47.33 Obstructive sleep apnea (adult) (pediatric) (principal); G47.13 Recurrent hypersomnia; Z91.89 Other specified personal risk factors, not elsewhere classified
CPT/HCPCS: 95806

== ENCOUNTER 2022-07-19 00:23 | Day surgery (SDC) | payer MEDICARE, SELFPAY ==
[2022-07-12 08:30] VITALS: BMI 39.2
--- NOTE | 2022-07-17 16:54 | PM.HPGS ---
History of Present Illness History of Present Illness Consent: Risks, benefits, and alternatives have been discussed and questions answered. Patient agrees to proceed with procedure. Chief complaint: neoplasm screening Narrative: Desmond Piper is a 67 year old male referred for colon cancer screening. his last colonoscopy was 15 years ago. Review of Systems Review of Systems: All systems reviewed & are unremarkable except as noted in HPI and below PMFSH Past Medical History Medical History Asthma BMI 36.0-36.9,adult BMI 37.0-37.9, adult Elevated glucose Essential hypertension Left hip pain Left knee pain Mild intermittent asthma without complication Mixed hyperlipidemia Paroxysmal atrial fibrillation Right knee pain Tinnitus Surgical History Surgical History H/O cataract extraction H/O Spinal surgery Family History Family History Mother Family history of atrial fibrillation Hypertension Cerebrovascular accident Dementia Father Family history of atrial fibrillation Chronic obstructive pulmonary disease Hypertension Congestive heart failure Sibling Family history of atrial fibrillation Social History Social History Social History: The patient lives with his and mother who was in her 90s. His is the durable power metaphysician for healthcare. He desires to be a full code. 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 He used to smoke cigars until 10/14/1979. He does not use any alcohol, marijuana, or illicit drugs. Smoking status: Never smoker Tobacco type: cigars Smoking end date: 10/14/79 Alcohol intake: never Substance use: never Substance use type: does not use Living arrangements: with family Additional occupation/education comments: chiropractor. Gender identity (if verbalized by the patient): Male Spiritual care concerns: No Meds Home Medications and Allergies Home Medications Medication Instructions Recorded Confirmed Type ascorbic acid (vitamin C) 500 mg 500 mg PO DAILY 12/22/20 07/12/22 History tablet cholecalciferol (vitamin D3) 125 125 mcg PO DAILY 12/22/20 07/12/22 History mcg (5,000 unit) capsule (Dialyvite Vitamin D) cod liver oil 2 cap PO BID 12/22/20 07/12/22 History magnesium 200 mg tablet 400 mg PO DAILY 12/22/20 07/12/22 History potassium 99 mg tablet 99 mg PO DAILY 12/22/20 07/12/22 History rivaroxaban 20 mg tablet (Xarelto) 20 mg PO DAILY@1700 #30 tabs 12/27/20 07/12/22 Rx spironolactone 25 mg tablet 25 mg PO QAM #30 tabs 12/27/20 07/12/22 Rx chromium picolinate 200 mcg capsule 200 mcg PO DAILY 01/30/21 07/12/22 History losartan 25 mg tablet 50 mg PO DAILY 01/30/21 07/12/22 History amiodarone 200 mg tablet 100 mg PO DAILY 05/31/22 07/12/22 History furosemide 40 mg tablet 40 mg PO DAILY PRN Edema 05/31/22 07/12/22 History metoprolol tartrate 50 mg tablet 25 mg PO Q12H 05/31/22 07/12/22 History meclizine 25 mg tablet 25 mg PO BID PRN dizziness #30 tabs 06/04/22 07/12/22 Rx Allergies Allergy/AdvReac Type Severity Reaction Status Date / Time amoxicillin Allergy Unknown Unknown Verified 07/19/22 06:52 Penicillins Allergy Unknown Unknown Verified 07/19/22 06:52 bee venom protein (honey bee) Allergy Swelling Verified 07/19/22 06:52 [bees] Exam Resp: Auscultation: clear to auscultation bilaterally Cardio: Rate: regular rate Rhythm: regular rhythm GI: GI Palp: Yes Soft to palpation and No Tenderness to palpation present (GI) Assessment and Plan Assessment and plan (1) Colon cancer screening: Code(s): Z12.11 - Encounter for screening for malignant neoplasm of colon Status: Acute Assessment and Plan: Colonoscopy with possible biopsy or poly
[2022-07-19 06:57] VITALS: BP 129/80; PULSE 56; RESP 18; TEMP 36; O2SAT 96
[2022-07-19] MEDS: LACTATED RINGERS 1,000 ML 150 ML IV CONT (07:06)
--- NOTE | 2022-07-19 07:47 | WPDANESEPPF ---
Anes - Initial Pre Proc Eval Procedure: Operation Date: 07/19/22 08:00 Proposed Procedures p Screening Colonoscopy - Sly Leblanc MD Date/Time: 07/19/22 07:47 Surgeon: Sly Leblanc MD Pre Op Diagnosis: neoplasm screening Patient Data Age: 67 Gender: M Height: 1.75 m Weight: 120.4 kg Last Vital Signs Temp 96.8 F L 07/19/22 06:57 Pulse 56 L 07/19/22 06:57 Resp 18 07/19/22 06:57 BP 129/80 07/19/22 06:57 Pulse Ox 96 07/19/22 06:57 O2 Del Method Room Air 07/19/22 06:57 Allergies Allergy/AdvReac Type Severity Reaction Status Date / Time amoxicillin Allergy Unknown Unknown Verified 07/19/22 06:52 Penicillins Allergy Unknown Unknown Verified 07/19/22 06:52 bee venom protein (honey bee) Allergy Swelling Verified 07/19/22 06:52 [bees] Home Medications Medication Instructions Recorded Confirmed Type ascorbic acid (vitamin C) 500 mg 500 mg PO DAILY 12/22/20 07/12/22 History tablet cholecalciferol (vitamin D3) 125 125 mcg PO DAILY 12/22/20 07/12/22 History mcg (5,000 unit) capsule (Dialyvite Vitamin D) cod liver oil 2 cap PO BID 12/22/20 07/12/22 History magnesium 200 mg tablet 400 mg PO DAILY 12/22/20 07/12/22 History potassium 99 mg tablet 99 mg PO DAILY 12/22/20 07/12/22 History rivaroxaban 20 mg tablet (Xarelto) 20 mg PO DAILY@1700 #30 tabs 12/27/20 07/12/22 Rx spironolactone 25 mg tablet 25 mg PO QAM #30 tabs 12/27/20 07/12/22 Rx chromium picolinate 200 mcg capsule 200 mcg PO DAILY 01/30/21 07/12/22 History losartan 25 mg tablet 50 mg PO DAILY 01/30/21 07/12/22 History amiodarone 200 mg tablet 100 mg PO DAILY 05/31/22 07/12/22 History furosemide 40 mg tablet 40 mg PO DAILY PRN Edema 05/31/22 07/12/22 History metoprolol tartrate 50 mg tablet 25 mg PO Q12H 05/31/22 07/12/22 History meclizine 25 mg tablet 25 mg PO BID PRN dizziness #30 tabs 06/04/22 07/12/22 Rx Patient hx anesthesia problems: none Family hx anesthesia problems: none Results Review: All pre-operative results and documents have been reviewed as part of the pre-operative evaluation. [facility] Past Medical History Medical History Asthma BMI 36.0-36.9,adult BMI 37.0-37.9, adult Elevated glucose Essential hypertension Left hip pain Left knee pain Mild intermittent asthma without complication Mixed hyperlipidemia Paroxysmal atrial fibrillation Right knee pain Tinnitus Surgical History Surgical History H/O cataract extraction H/O Spinal surgery Family History Family History Mother Family history of atrial fibrillation Hypertension Cerebrovascular accident Dementia Father Family history of atrial fibrillation Chronic obstructive pulmonary disease Hypertension Congestive heart failure Sibling Family history of atrial fibrillation Social History Social History Social History: The patient lives with his and mother who was in her 90s. His is the durable power orthodontic assistant for healthcare. He desires to be a full code. 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 He used to smoke cigars until 10/14/1979. He does not use any alcohol, marijuana, or illicit drugs. Smoking status: Never smoker Tobacco type: cigars Smoking end date: 10/14/79 Alcohol intake: never Substance use: never Substance use type: does not use Living arrangements: with family Additional occupation/education comments: chiropractor. Gender identity (if verbalized by the patient): Male Spiritual care concerns: No Anes - Eval Final PreProcedure Day of Procedure 07/19/22 07:47 Patient weight: morbidly obese Heart: regular rate and rhythm Lungs: clear to auscultation Airway: Mallampati scale class III Neurological: alert and nima
[2022-07-19 08:22] VITALS: BP 102/56; PULSE 54; RESP 14; O2SAT 95
[2022-07-19 08:32] VITALS: BP 110/67; PULSE 53; RESP 16; O2SAT 97
[2022-07-19 08:42] VITALS: BP 125/73; PULSE 50; RESP 17; O2SAT 97
== END 2022-07-19 08:50 | disposition home or self-care (01) ==
PROVIDERS: PCP Family Medicine; Visit Provider Internal Medicine Gastroenterology
PROC: 0DJD8ZZ Inspection of Lower Intestinal Tract, Via Natural or Artificial Opening Endoscopic (ICD-10-PCS; CPT 45378; principal; 2022-07-19 08:00)
DX: Z12.11 Encounter for screening for malignant neoplasm of colon (principal); Z79.01 Long term (current) use of anticoagulants; I10 Essential (primary) hypertension; J45.20 Mild intermittent asthma, uncomplicated; E78.2 Mixed hyperlipidemia; I48.0 Paroxysmal atrial fibrillation; E66.9 Obesity, unspecified; Z68.39 Body mass index [BMI] 39.0-39.9, adult; Z87.891 Personal history of nicotine dependence
CPT/HCPCS: G0121; J2704; J7120